=== PATIENT | female | born 1985 | race Caucasian/White ===

== ENCOUNTER 2016-10-03 22:34 | Inpatient (IN) | payer MEDICAID ==
[2016-10-03 23:56] LABS: APPEARANCE,URINE CLEAR; BILIRUBIN,URINE NEGATIVE (NEGATIVE); GLUCOSE, URINE NEGATIVE (NEGATIVE); KETONES,URINE NEGATIVE (NEGATIVE); LEUKOCYTE ESTERASE,URINE NEGATIVE (NEGATIVE); NITRITE,URINE NEGATIVE (NEGATIVE); PROTEIN,URINE NEGATIVE (NEGATIVE); URINE SPECIFIC GRAVITY 1.005; UROBILINOGEN,URINE NEGATIVE mg/dL (<2.0)
[2016-10-04] MEDS ORDERED: RINGERS SOLUTION,LACTATED 1,000 ML IV PRN ×3 (00:04→02:13)
[2016-10-04] MEDS ORDERED: CEFAZOLIN 2 GM/D5W RTU 2 GM/50 ML RTUPB IV ONE (00:27)
[2016-10-04] MEDS ORDERED: CITRIC ACID/SODIUM CITRATE ORAL SOLN 15 ML UDCUP ONE (00:27)
[2016-10-04] MEDS ORDERED: CEFAZOLIN SODIUM 2 GM in DEXTROSE 5%-WATER 50 ML IV PRN (00:28)
[2016-10-04] MEDS ORDERED: CITRIC ACID/SODIUM CITRATE ORAL SOLN 15 ML UDCUP PO PRN (00:28)
[2016-10-04 00:35] LABS: ABSOLUTE BASOPHILS # (AUTO) 0.1 10^3/uL (0.0-0.2); ABSOLUTE EOSINOPHILS # (AUTO) 0.2 10^3/uL (0.0-0.6); ABSOLUTE MONOCYTES (AUTO) 0.9 10^3/uL (0.1-1.4); ABSOLUTE NEUT (AUTO) 10.8 10^3/uL (1.7-8.2); BASOPHILS % (AUTO) 0.7 % (0-2); EOSINOPHILS % (AUTO) 1.2 % (0-6); HEMOGLOBIN 11.9 g/dL (12.0-15.5); HGB HCT DIFFERENCE 1.7; LYMPHOCYTES % (AUTO) 19.8 % (13-45); MEAN CORPUSCULAR HGB CONC 34.9 g/dL (32.0-36.0); MEAN CORPUSCULAR VOLUME 89 fl (80-97); RED BLOOD COUNT 3.83 10^6/uL (3.72-5.28); RED CELL DISTRIBUTION WIDTH 13.9 % (11.5-14.0); SEGMENTED NEUTROPHILS % (AUTO) 72.3 % (42-78)
[2016-10-04] MEDS ORDERED: FENTANYL CITRATE INJ/PF 100 MCG/2 ML AMPUL ONE ×2 (01:10→03:45)
[2016-10-04] MEDS ORDERED: EPHEDRINE SULFATE INJ 50 MG/1 ML AMPULE ONE (01:10)
[2016-10-04] MEDS ORDERED: OXYTOCIN/NORMAL SALINE 20 UNIT/1,000 ML RTUINJ ONE (01:10)
[2016-10-04] MEDS ORDERED: OXYTOCIN 10 UNIT/ML VIAL ONE (01:10)
[2016-10-04] MEDS ORDERED: MIDAZOLAM 2 MG/2 ML INJ ONE (01:11)
[2016-10-04 01:18] LABS: URINE BARBITURATES SCREEN NEGATIVE; URINE METHADONE SCREEN NEGATIVE; URINE OPIATES LOW NEGATIVE; URINE PHENCYCLIDINE SCREEN NEGATIVE
[2016-10-04] MEDS ORDERED: DIPH/PERTUSS(ACELL)/TETANUS VAC/PF 0.5 ML SYR (>=10YO) IM PRN (02:13)
[2016-10-04] MEDS ORDERED: SIMETHICONE 80 MG TAB.CHEW PO PRN (02:13)
[2016-10-04] MEDS ORDERED: OXYTOCIN/NORMAL SALINE 20 UNIT/1,000 ML RTUINJ IV PRN (02:13)
[2016-10-04] MEDS ORDERED: PROMETHAZINE HCL INJ 25 MG/1 ML VIAL IV PRN ×3 (02:13)
[2016-10-04] MEDS ORDERED: MORPHINE SULFATE 10 MG/ML INJ IV PRN (02:13)
[2016-10-04] MEDS ORDERED: MEPERIDINE HCL/PF INJ 25 MG/1 ML DISP.SYRIN IV PRN (02:13)
[2016-10-04] MEDS ORDERED: FENTANYL CITRATE INJ/PF 100 MCG/2 ML AMPUL IV PRN ×3 (02:13)
[2016-10-04] MEDS ORDERED: ONDANSETRON HCL INJ/PF 4 MG/2 ML SDV IV PRN (02:13)
[2016-10-04] MEDS ORDERED: ACETAMINOPHEN 325 MG TABLET PO PRN (02:13)
[2016-10-04] MEDS ORDERED: OXYCODONE-ACETAMINOPHEN 5-325 MG TABLET PO PRN (02:13)
[2016-10-04] MEDS ORDERED: DIPHENHYDRAMINE HCL 50 MG/ML VIAL IV PRN (02:13)
[2016-10-04] MEDS ORDERED: ACETAMINOPHEN 100 ML IV ONE (02:23)
[2016-10-04 02:38] LABS: ADD HIVPANEL? NO; HIV (1 AND 2) ANTIBODY NEGATIVE (NEGATIVE)
--- NOTE | 2016-10-04 03:23 | OPERATIVE REPORT E ---
Operative Report NAME: CAMERON SCHULTE : 1985 AGE: 31Y DATE OF SURGERY: 10/04/2016 ROOM: LR200 PREOPERATIVE DIAGNOSES: 1. A 40-week intrauterine , history of section x2 for repeat. 2. Poor care. 3. History of polysubstance abuse including intravenous heroin. 4. Reassuring heart tones, remote from delivery. POSTOPERATIVE DIAGNOSES: 1. A 40-week intrauterine , history of section x2 for repeat. 2. Poor care. 3. History of polysubstance abuse including intravenous heroin. 4. Reassuring heart tones, remote from delivery. SURGEON: Pierre Garg D.O. CONTACT PRINTER DRY FILM: None. OPERATION: Repeat low transverse section. ANESTHESIA: Spinal. COMPLICATIONS: None. ESTIMATED BLOOD LOSS: 600 mL. FINDINGS: 1. Viable male infant at 0133 a.m. on 10/04/2016; Apgars pending this dictation. 2. Meconium present, moderate in amount. 3. Normal-appearing bilateral fallopian tubes and ovaries. PROCEDURE: The patient was taken to the operating room and spinal anesthesia was administered. Once this was done, she was placed in the dorsal supine position with a leftward tilt upon the operating table. She was then prepped and draped in the normal sterile fashion. A scalpel was then used to make a Pfannenstiel skin incision. The skin incision was carried down through the subcutaneous tissues to the layer of the fascia. The fascia was incised in the midline. The fascial incision was then extended bilaterally using the Bovie cautery. The superior fascial edge was grasped with Marilyn clamps, elevated, and the rectus muscles dissected off sharply and bluntly. Attention was then turned to the inferior fascial edge, which was grasped with Marilyn clamps, elevated, and the rectus muscles dissected off sharply and bluntly. Rectus muscles were then in the midline, peritoneum identified and entered in bluntly with the surgeon's hands. Bladder blade was inserted. A scalpel was then used to make a low transverse hysterotomy incision. The was found to be in the cephalic position and delivered through this incision without difficulty and atraumatically. The nose and mouth were suctioned. The cord was clamped and cut. The was handed off to the waiting nurses. The cord was obtained. The placenta was then manually removed from the uterus. The uterus was then exteriorized and cleared of all clots and debris. The hysterotomy incision was then reapproximated using 1-0 Vicryl in a running locking fashion. Following closure of the second layer, excellent hemostasis was noted. Of note, approximately 1.5 cm below the hysterotomy incision, there appeared to be a thin window present approximately 3 to 4 cm in size. The uterus was then returned to the abdomen. Again, the hysterotomy incision was reinspected and found to have excellent hemostasis. The rectus muscles were then reapproximated using 1-0 Vicryl in interrupted sutures. The fascia was then closed using 1-0 Vicryl in a running nonlocking fashion. The subcutaneous space was made hemostatic using Bovie cautery. The skin was then closed with absorbable carrington, covered with an Op-Site and then with a pressure dressing. At this point in time, the procedure was terminated. All sponge, lap, and needle counts were correct x2. The patient tolerated the procedure well. The patient was taken to the recovery in stable condition. DICTATING PHYSICIAN: Pierre Garg DO [id number] PHY#: [id number] ID: [id number] JOB#: [id number] ACCT: [id number] cc:Pierre Garg D.O. >
--- NOTE | 2016-10-04 04:50 | Admission Physical ---
Datetime Report Generated by CPN: 10/04/2016 04:49 CURRENT ADMISSION Chief Complaint: Uterine Contractions Indication for Induction: Not Applicable Admit Impression- Other: Cat 2 strip Admit Plan: Admit to Unit; Initiate Section Protocol ALLERGIES Medication Allergies: No Medication Allergies: No Known Allergies (10/03/2016) Latex: No Latex Allergies Food Allergies: tree nuts Environmental Allergies: n/a OBSTETRICAL HISTORY EDC: 09/24/2016 00:00 : 4 Para: 3 Livin Cesareans: 2 VBACs: 0 Multiple Births: 1 Gestational Diabetes: No Rh Sensitization: No Incompetent Cervix: No FARRUKH: No Infertility: No ART Treatment: No Uterine Anomaly: No IUGR: No Hx Previous C/S: Yes Macrosomia: No Hx Loss/Stillborn: No PIH: No Hx : No Placenta Previa/Abruption: No Depression/PP Depression: Yes PTL/PROM: No Post Hemorrhage: No Current Procedures: Ultrasound; NST Obstetrical History Comments: 2003 SAB [id number] Twin boy c/s 37.5 g3- 05/2015 c/s boy 39 wks g4- current SEE RECORDS Alcohol: Yes Alcohol Frequency: Occasional Alcohol Comments: Glass of wine once/week Marijuana : No Cocaine: No Other Illicit Drugs: No Cigarettes: Current Everyday Smoker. [id number] Cigarette Frequency: 5 - 10 per day Advised to Stop: Yes Cigarette Comments: daily smoking MEDICAL HISTORY Diabetes: No Blood Transfusion: No Pulmonary Disease (Asthma, TB): No Breast Disease: No Hypertension: No Audio Video Mechanic Surgery: No Heart Disease: No Hosp/Surgery: Yes Autoimmune Disorder: No Anesthetic Complications: No Kidney Disease: No Abnormal Pap Smear: No Neuro/Epilepsy: No Psychiatric Disorders: No Other Medical Diseases: No Hepatitis/Liver Disease: No Significant Family History: No Varicosities/Phlebitis: No Trauma/Violence : No Thyroid Dysfunction: No INFECTIOUS HISTORY Gonorrhea: No Genital Herpes: No Chlamydia: No Tuberculosis: No Syphilis: No Hepatitis: No HIV/AIDS Exposure: No Rash or Viral Illness: No HPV: No PHYSICAL EXAM General: Normal HEENT: Normal Neurologic: Normal Thyroid: Deferred Heart: Normal Lungs: Normal Breast: Deferred Back: Normal Abdomen: Normal Genitourinary Exam: Normal Extremities: Normal DTRs: Normal Pelvic Type: Adequate Vital Signs: Reviewed; Within Normal Limits VAGINAL EXAM Dilatation: 1 Effacement: 80 Station: 0 MEMBRANES Membranes: Intact FETUS A EGA: 41.3 Monitoring: External US FHR- Baseline: 160 Variability: Moderate 6-25bpm Accelerations: 15X15 Decelerations: Variable FHR Category: Category II Admit Comment: Will admit and proceed with Repeat C/S PLANS FOR LABOR AND DELIVERY Feeding Preference: Breast Benefit of Breast Feed Discussed: Yes Circumcision: Yes INFORMED CONSENT Signature: with User ID: [email or web address]
[2016-10-04] MEDS: KETOROLAC TROMETHAMINE INJ/PF 30 MG/1 ML SDV IV SCH ×3 (05:00→21:44)
[2016-10-04] MEDS: HYDROMORPHONE HCL INJ/PF 2 MG/ML AMPULE IV PRN ×2 (06:22→09:57)
--- NOTE | 2016-10-04 07:01 | L&D Flow Sheet ---
LD Flowsheet Datetime Report Generated by CPN: 10/04/2016 07:00 Datetime: 10/04/2016 04:20 Vital Signs Stage of : Recovery (Ariella Errichiello, RN) Temperature (F): 97.5 (Ariella Errichiello, RN) Temperature (C): 36.4 (QS system process) Pain Pain Scale: 0 (Ariella Errichiello, RN) Datetime: 10/04/2016 04:18 NBP Sys/Luann/Mean (mmHg): 150 (QS system process) : 70 (QS system process) : 100 (QS system process) Pulse: 63 (QS system process) Datetime: 10/04/2016 04:16 Pulse: 53 (QS system process) SpO2 (%): 99 (QS system process) Datetime: 10/04/2016 04:11 Pulse: 67 (QS system process) SpO2 (%): 100 (QS system process) Datetime: 10/04/2016 04:07 NBP Sys/Luann/Mean (mmHg): 159 (QS system process) : 94 (QS system process) : 119 (QS system process) Pulse: 60 (QS system process) Datetime: 10/04/2016 04:06 Pulse: 60 (QS system process) SpO2 (%): 100 (QS system process) Datetime: 10/04/2016 04:01 Pulse: 63 (QS system process) SpO2 (%): 100 (QS system process) Datetime: 10/04/2016 04:00 Vital Signs Stage of : Recovery (Ariella Errichiello, RN) Pain Pain Scale: 0 (Ariella Errichiello, RN) Pain Presence: None/Denies (Ariella Errichiello, RN) Pain Type: N/A (Ariella Errichiello, RN) Datetime: 10/04/2016 03:56 Pulse: 66 (QS system process) SpO2 (%): 100 (QS system process) Datetime: 10/04/2016 03:52 NBP Sys/Luann/Mean (mmHg): 150 (QS system process) : 87 (QS system process) : 112 (QS system process) Pulse: 53 (QS system process) Datetime: 10/04/2016 03:51 Pulse: 56 (QS system process) SpO2 (%): 100 (QS system process) Datetime: 10/04/2016 03:46 Pulse: 53 (QS system process) SpO2 (%): 100 (QS system process) Datetime: 10/04/2016 03:41 Pulse: 63 (QS system process) SpO2 (%): 100 (QS system process) Datetime: 10/04/2016 03:37 NBP Sys/Luann/Mean (mmHg): 155 (QS system process) : 89 (QS system process) : 114 (QS system process) Pulse: 48 (QS system process) Datetime: 10/04/2016 03:36 Pulse: 52 (QS system process) SpO2 (%): 100 (QS system process) Datetime: 10/04/2016 03:31 Pulse: 56 (QS system process) SpO2 (%): 100 (QS system process) Datetime: 10/04/2016 03:30 Vital Signs Stage of : Recovery (Ariella Errichiello, RN) Pain Pain Scale: 0 (Ariella Errichiello, RN) Pain Presence: None/Denies (Ariella Errichiello, RN) Pain Type: N/A (Ariella Errichiello, RN) Datetime: 10/04/2016 03:26 Pulse: 50 (QS system process) SpO2 (%): 100 (QS system process) Datetime: 10/04/2016 03:22 NBP Sys/Luann/Mean (mmHg): 148 (QS system process) : 85 (QS system process) : 110 (QS system process) Pulse: 51 (QS system process) Datetime: 10/04/2016 03:21 Pulse: 55 (QS system process) SpO2 (%): 100 (QS system process) Datetime: 10/04/2016 03:16 Pulse: 58 (QS system process) SpO2 (%): 100 (QS system process) Datetime: 10/04/2016 03:11 Pulse: 50 (QS system process) SpO2 (%): 100 (QS system process) Datetime: 10/04/2016 03:07 NBP Sys/Luann/Mean (mmHg): 146 (QS system process) : 83 (QS system process) : 108 (QS system process) Pulse: 55 (QS system process) Datetime: 10/04/2016 03:06 Pulse: 52 (QS system process) SpO2 (%): 100 (QS system process) Datetime: 10/04/2016 03:01 Pulse: 69 (QS system process) SpO2 (%): 100 (QS system process) Datetime: 10/04/2016 03:00 Vital Signs Stage of : Recovery (Ariella Errichiello, RN) Pain Pain Scale: 0 (Ariella Errichiello, RN) Pain Presence: None/Denies (Ariella Errichiello, RN) Pain Type: N/A (Ariella Errichiello, RN) Datetime: 10/04/2016 02:56 Pulse: 55 (QS system process) SpO2 (%): 100 (QS system process) Datetime: 10/04/2016 02:53 NBP Sys/Luann/Mean (mmHg): 135 (QS system process) : 78 (QS system process) : 102 (QS system process) Pulse: 56 (QS system process) Datetime: 10/04/2016 02:51 Pulse: 59 (QS system process) SpO2 (%): 100 (QS system process) Datetime: 10/04/2016 02:46 Pulse: 50 (QS system process) SpO2 (%): 100 (QS system process) Datetime: 10/04/2016 02:45 Vital Signs Stage of : Recovery (Ariella Errichiello, RN) Pain Pain Scale: 0 (Ariella Errichiello, RN) Pain Presence: None/Denies (Ariella Errichiello, RN) Pain Type: N/A (Ariella Errichiello, RN) Datetime: 10/04/2016 02:41 Pulse: 49 (QS system process) SpO2 (%): 100 (QS system process) Datetime: 10/04/2016 02:37 NBP Sys/Luann/Mean (mmHg): 132 (QS system process) : 68 (QS system process) : 95 (QS system process) Pulse: 54 (QS system process) Datetime: 10/04/2016 02:36 Pulse: 57 (QS system process) SpO2 (%): 99 (QS system process) Datetime: 10/04/2016 02:31 Pulse: 57 (QS system process) SpO2 (%): 100 (QS system process) Datetime: 10/04/2016 02:30 Vital Signs Stage of : Recovery (Ariella Errichiello, RN) Pain Pain Scale: 0 (Ariella Errichiello, RN) Pain Presence: None/Denies (Ariella Errichiello, RN) Pain Type: N/A (Ariella Errichiello, RN) Datetime: 10/04/2016 02:26 Pulse: 54 (QS system process) SpO2 (%): 100 (QS system process) Datetime: 10/04/2016 02:25 NBP Sys/Luann/Mean (mmHg): 127 (QS system process) : 66 (QS system process) : 91 (QS system process) Pulse: 53 (QS system process) Datetime: 10/04/2016 02:20 Vital Signs Stage of : Recovery (Ariella Errichiello, RN) Respirations: 16 (Ariella Errichiello, RN) Temperature (F): 97.4 (Ariella Errichiello, RN) Temperature (C): 36.3 (QS system process) Pain Pain Scale: 0 (Ariella Errichiello, RN) Datetime: 10/04/2016 01:15 Additional Nursing Comments: Pt ambulating to OR for repeat . (Meenu Lattibeaudeir, RN) Datetime: 10/04/2016 01:14 Comments: monitors removed as pt to go to OR for repeat c/s (Ariella Errichiello, RN) Datetime: 10/04/2016 01:09 NBP Sys/Luann/Mean (mmHg): 155 (QS system process) : 74 (QS system process) : 107 (QS system process) Pulse: 60 (QS system process) LaborFlag: Antepartum (QS system process) Datetime: 10/04/2016 00:51 Communication Comments: Called Estefani, PRINTED FORMS PROOFREADER and informed that called. (Meenu Lattibeaudeir, RN) Datetime: 10/04/2016 00:47 Communication Comments: Called Suri, component assembler supervisor, and [facility] [address] to informed them of being called. (Meenu Lattibeaudeir, RN) Datetime: 10/04/2016 00:45 Vital Signs Stage of : Antepartum (Ariella Errichiello, RN) Uterine Activity Monitor Mode: External (Ariella Paige RN) Monitor Interventions for UA: [place] Adjusted (Ariella Paige RN) Frequency (min): 3-4 (Ariella Paige RN) Quality: Mild/Moderate (Ariella Paige RN) Duration (sec): 50-130 (Ariella Paige RN) Resting Tone (Palpate): Relaxed (Ariella Paige RN) Assessment A Monitor Mode: External US (Ariella Paige RN) Monitor Interventions for FHR: Ultrasound Adjusted (Ariella Paige RN) FHR Baseline Rate : 165 (Ariella Paige RN) FHR Baseline Changes: No Baseline Change (Ariella Paige RN) Variability: Moderate 6-25 bpm (Ariella Paige, RN) Accelerations: 15X15 (Ariella Paige RN) Decelerations: Variable (Ariella Paige RN) Patient Position/Activity: Right Tilt; Semi-Fowlers (Ariella Paige, RN) Communication Communication: RN Reviewed Strip (Ariella Errichiello, RN) Communication Comments: RN went into [facility] and informed them has been called. (Meenu Lattibeaudeir, RN) Datetime: 10/04/2016 00:40 Medications Antibiotics: Ancef IV (Gm) @ 2 (Ariella Errichiello, RN) Antiemetics/Antacids: Bicitra 15 ml PO (Ariella Errichiello, RN) Datetime: 10/04/2016 00:39 NBP Sys/Luann/Mean (mmHg): 159 (QS system process) : 90 (QS system process) : 118 (QS system process) Pulse: 69 (QS system process) LaborFlag: Antepartum (QS system process) Datetime: 10/04/2016 00:36 Patient Care IV/Blood Work: IV Started; IV Bolus Started; IV Infusing per Order; New IV Bag Hung (Ariella Errichiello, RN) Datetime: 10/04/2016 00:35 I/O Interventions: House Cath Inserted (Ariella Errichiello, RN) Datetime: 10/04/2016 00:30 Procedures: Consents Signed (Ariella Errichiello, RN) Datetime: 10/04/2016 00:25 NBP Sys/Luann/Mean (mmHg): 157 (QS system process) : 86 (QS system process) : 114 (QS system process) Pulse: 73 (QS system process) LaborFlag: Antepartum (QS system process) Datetime: 10/04/2016 00:15 Vital Signs Stage of : Antepartum (Ariella Errichiello, RN) Uterine Activity Monitor Mode: External (Ariella Paige RN) Monitor Interventions for UA: [place] Adjusted (Ariella Paige RN) Frequency (min): 2-5 (Ariella Paige RN) Quality: Mild/Moderate (Ariella Paige RN) Duration (sec): 50-120 (Ariella Paige RN) Resting Tone (Palpate): Relaxed (Ariella Paige, RN) Assessment A Monitor Mode: External US (Ariella Paige RN) Monitor Interventions for FHR: Ultrasound Adjusted (Ariella Paige RN) FHR Baseline Rate : 165 (Ariella Paige RN) FHR Baseline Changes: No Baseline Change (Ariella Paige RN) Variability: Moderate 6-25 bpm (Ariella Paige RN) Accelerations: 15X15 (Ariella Paige RN) Decelerations: Late (Ariella Paige RN) Pain Presence: None/Denies (Ariella Paige RN) Patient Position/Activity: Right Tilt; Semi-Fowlers (Ariella Paige RN) Communication Communication: RN at Bedside; RN Reviewed Strip (Ariella Paige RN) Communication Comments: Dr Garg on unit, some records received from [facility]. After review of records and oberservation of strip, decision made to admit patient for repeat c/s. (Ariella Paige RN) LaborFlag: Antepartum (QS system process) Datetime: 10/04/2016 00:10 NBP Sys/Luann/Mean (mmHg): 140 (QS system process) : 89 (QS system process) : 110 (QS system process) Pulse: 68 (QS system process) LaborFlag: Antepartum (QS system process) Datetime: 10/03/2016 23:57 NBP Sys/Luann/Mean (mmHg): 152 (QS system process) : 69 (QS system process) : 99 (QS system process) Pulse: 67 (QS system process) I/O Interventions: Up to BR (Ariella Paige RN) LaborFlag: Antepartum (QS system process) Datetime: 10/03/2016 23:54 NBP Sys/Luann/Mean (mmHg): 164 (QS system process) : 102 (QS system process) : 117 (QS system process) Pulse: 85 (QS system process) LaborFlag: Antepartum (QS system process) Datetime: 10/03/2016 23:45 Vital Signs Stage of : Antepartum (Ariella Paige RN) Uterine Activity Monitor Mode: External (Ariella Paige RN) Monitor Interventions for UA: [place] Adjusted (Ariella Paige RN) Frequency (min): 2-6 (Ariella Paige RN) Quality: Mild (Ariella Paige RN) Duration (sec): 50-120 (Ariella Paige RN) Resting Tone (Palpate): Relaxed (Ariella Paige RN) Assessment A Monitor Mode: External US (Ariella Paige RN) Monitor Interventions for FHR: Ultrasound Adjusted (Ariella Paige RN) FHR Baseline Rate : 165 (Ariella Paige RN) FHR Baseline Changes: No Baseline Change (Ariella Paige RN) Variability: Moderate 6-25 bpm (Ariella Paige RN) Accelerations: 15X15 (Ariella Paige RN) Decelerations: Late; Variable (Ariella Paige RN) Patient Position/Activity: Left Tilt; Semi-Fowlers (Ariella Paige RN) Communication Communication: RN at Bedside; RN Reviewed Strip (Ariella Paige RN) Datetime: 10/03/2016 23:44 Communication Comments: [place] on unit, awaiting results of UA/UDS and records from [facility]. Will continue to monitor pt closely. (Ariella Paige RN) Datetime: 10/03/2016 23:39 NBP Sys/Luann/Mean (mmHg): 143 (QS system process) : 92 (QS system process) : 113 (QS system process) Pulse: 70 (QS system process) Communication Comments: Dr Garg called, made aware of pt condition, EFM strip and pt complaints. MD states he will come to unit to discuss POC (Ariella Paige RN) LaborFlag: Antepartum (QS system process) Datetime: 10/03/2016 23:34 Actions for Decelerations: Side to Side (Ariella Errichiello, RN) Datetime: 10/03/2016 23:23 NBP Sys/Luann/Mean (mmHg): 155 (QS system process) : 95 (QS system process) : 118 (QS system process) Pulse: 63 (QS system process) LaborFlag: Antepartum (QS system process) Datetime: 10/03/2016 23:16 Vaginal Exam Dilatation (cm): 1.0 (Meenu Martineztibbelkis RN) Effacement (%): 80 (Meenu Steiner, DHARMESH) Station: 0 (Meenu Steiner RN) Exam by: Tati DHARMESH Steiner (Meenu Steiner, DHARMESH) Datetime: 10/03/2016 23:15 Vital Signs Stage of : Antepartum (Ariella Paige RN) Uterine Activity Monitor Mode: External (Ariella Paige RN) Monitor Interventions for UA: [place] Adjusted (Ariella Paige RN) Frequency (min): x2 (Ariella Paige RN) Quality: Mild/Moderate (Ariella Paige RN) Duration (sec): 60-120 (Ariella Paige RN) Resting Tone (Palpate): Relaxed (Ariella Paige RN) Assessment A Monitor Mode: External US (Ariella Paige RN) FHR Baseline Rate : 165 (Ariella Paige RN) FHR Baseline Changes: No Baseline Change (Ariella Paige RN) Variability: Moderate 6-25 bpm (Ariella Paige RN) Accelerations: 15X15 (Ariella Paige RN) Decelerations: Variable (Ariella Paige RN) Pain Pain Scale: 4 (Ariella Paige RN) Pain Presence: Intermittent (Ariella Paige RN) Pain Type: Contraction (Ariella Paige RN) Pain Goal: 1 (Ariella Paige RN) Pain Relief Measures: Comfort Measures (Ariella Paige RN) Pain Coping: Talking Through Contractions (Ariella Paige RN) Pain Assessment Comments: with UCs (Ariella Paige RN) Patient Position/Activity: Left Tilt; Semi-Fowlers (Ariella Paige RN) Comfort Measures: Breathing/Relaxation; Coaching; Family Support (Ariella Paige RN) Communication Communication: RN at Bedside; RN Reviewed Strip (Ariella Paige RN) LaborFlag: Antepartum (QS system process) Datetime: 10/03/2016 23:09 NBP Sys/Luann/Mean (mmHg): 142 (QS system process) : 92 (QS system process) : 112 (QS system process) Pulse: 77 (QS system process) Datetime: 10/03/2016 23:02 Pain Pain Scale: 3 (Ariella Paige RN) Pain Presence: Intermittent (Ariella Paige RN) Pain Type: Contraction (Ariella Paige RN) Pain Location: Abdomen (Ariella Paige RN) Pain Goal: 1 (Ariella Paige RN) Pain Relief Measures: Comfort Measures (Ariella Paige RN) Pain Coping: Breathing Through Contractions (Ariella Paige RN) Pain Assessment Comments: with UCs (Ariella Paige RN) Membrane Status: Intact (Ariella Paige RN) Vaginal Bleeding: None (Ariella Paige RN) Maternal Assessment Level of Consciousness: Fully Conscious (Ariella Paige RN) DTR's/Clonus: DTRs 2+; No Clonus (Ariella Paige RN) Headache: Denies (Ariella Paige RN) Breath Sounds, Left: Clear and Equal (Ariella Paige RN) Breath Sounds, Right: Clear and Equal (Ariella Paige RN) Nausea/Vomiting: Denies (Ariella Paige RN) Datetime: 10/03/2016 22:56 Comments: US applied and explained to pt (Ariella Paige RN) Datetime: 10/03/2016 22:36 Membranes Ruptured Date/Time: 10/04/2016 01:33 (Meenu Steiner RN) Membranes Rupture Method: Artificial (Meenu Steiner RN) Amniotic Fluid Color: Heavy Meconium (Meenu Steiner RN) Amniotic Fluid Amount: Small (Meenu Steiner RN) Amniotic Fluid Odor: Normal (Meenu Steiner RN)
[2016-10-04] MEDS: PRENATAL VITAMIN W-O CA NO5/FE FUMARATE/FA CAPSULE PO SCH (09:18)
[2016-10-04] MEDS: DOCUSATE SODIUM 100 MG CAPSULE PO SCH ×2 (09:18→17:38)
[2016-10-04] MEDS: OXYCODONE-ACETAMINOPHEN 5-325 MG TABLET PO PRN ×3 (11:46→19:51)
[2016-10-04] MEDS ORDERED: DEXAMETHASONE SOD PHOSPHATE INJ 4 MG/1 ML VIAL ONE (16:14)
[2016-10-04] MEDS ORDERED: PHENYLEPHRINE HCL INJ/PF 10 MG/1 ML SDV ONE (16:14)
[2016-10-04] MEDS ORDERED: ONDANSETRON HCL INJ/PF 4 MG/2 ML SDV ONE (16:14)
[2016-10-04] MEDS ORDERED: KETOROLAC TROMETHAMINE 60 MG/2 ML SDV ONE (16:14)
[2016-10-04] MEDS ORDERED: METOCLOPRAMIDE HCL INJ/PF 10 MG/2 ML SDV ONE (16:14)
--- NOTE | 2016-10-04 18:01 | L&D General Admission ---
General Admit Datetime Report Generated by CPN: 10/04/2016 18:00 INFORMATION Patient Age: 31 (10/03/2016 22:35:QS system process) EDC: 09/24/2016 00:00 (10/03/2016 22:36:Inga Preciado RN) : 4 (10/03/2016 22:36:Meenu Steiner RN) Para: 3 (10/03/2016 22:36:Meenu Steiner RN) Livin (10/03/2016 22:36:Meenu Steiner RN) Cesareans: 2 (10/03/2016 22:36:Meenu Steiner RN) VBACs: 0 (10/03/2016 22:36:Meenu Steiner RN) Multiple Births: 1 (10/03/2016 22:36:Meenu Steiner RN) Baby, Number in Womb: 1 (10/03/2016 22:36:Meenu Steiner RN) CARE Primary Desizing Pad Operator: Other-Annotate (10/03/2016 22:36:Ariella Paige RN) Desizing Pad Operator Other: [facility] (10/03/2016 22:36:Ariella Paige RN) Adequate Care: No (10/03/2016 22:36:Meenu Steiner RN) Height (in): 64 (10/04/2016 08:29:QS system process) ALLERGIES Medication Allergy: No (10/03/2016 22:36:Ariella Paige RN) Medication Allergies: No Known Allergies (10/03/2016) (10/03/2016 23:37:QS system process) Latex Allergy: No Latex Allergies (10/03/2016 22:36:Ariella Paige RN) Food Allergies: tree nuts (10/03/2016 22:36:Ariella Paige RN) Environmental Allergies: n/a (10/03/2016 22:36:Ariella Paige RN) COMMUNICATION Primary Language: Spanish (10/03/2016 22:36:Ariella Paige RN) Medical Tx Preferred Language: Spanish (10/03/2016 22:36:Ariella Paige RN) Communication Barrier(s): None (10/03/2016:36:Ariella Paige RN) DEMOGRAPHICS Address: [address] [place] [id number] (10/03/2016 22:35:QS system process) Zipcode: [address] (10/03/2016 22:35:QS system process) Home (10/03/2016 22:35:QS system process) N: [phone] (10/03/2016 22:35:QS system process) Next of Kin Name: JAXON BEAULIEU (10/03/2016 22:35:QS system process) Next of Kin (10/03/2016 22:35:QS system process) Next of Kin Relationship: OR (10/03/2016 22:35:QS system process) Date of : 1985 (10/03/2016 22:35:QS system process) Marital Status: Single (10/03/2016 22:35:QS system process) Sex: Female (10/03/2016 22:35:QS system process) Race: (10/03/2016 22:35:QS system process) Ethnicity: Non- or (10/03/2016 22:35:QS system process) Bahai: None (10/03/2016 22:35:QS system process) DRUG AND ALCOHOL USE Alcohol: Yes (10/03/2016 22:36:Ariella Paige RN) Average Alcohol Consumption: Occasional (10/03/2016 22:36:Ariella Paige RN) Alcohol Comments: Glass of wine once/week (10/03/2016 22:36:Ariella Paige RN) Cigarettes: Current Everyday Smoker. [id number] (10/03/2016 22:36:Ariella Paige RN) Average Cigarettes Smoked: 5 - 10 per day (10/03/2016 22:36:Ariella Paige RN) Advised to Stop Smoking: Yes (10/03/2016 22:36:Ariella Paige RN) Cigarette Comments: daily smoking (10/03/2016 22:36:Ariella Paige RN) Marijuana: No (10/03/2016 22:36:Ariella Paige RN) Cocaine: No (10/03/2016 22:36:Ariella Paige RN) Other Illicit Drugs: No (10/03/2016 22:36:Ariella Paige RN) VACCINE HISTORY Influenza Vaccine: Yes (10/03/2016 22:36:Ariella Paige RN) Influenza Date: june 2016 (10/03/2016 22:36:Ariella Paige RN) Pneumococcal Vaccine: No (10/03/2016 22:36:Ariella Paige RN) Tetanus Vaccine: No (10/03/2016 22:36:Ariella Paige RN) Tdap Vaccine: Uncertain (10/03/2016 22:36:Ariella Paige RN) Hepatitis B Vaccine: Uncertain (10/03/2016 22:36:Ariella Paige RN) Business Administration Instructor: Other (10/03/2016 22:36:Ariella Paige RN) Feeding Preference: Breast (10/03/2016 22:36:Ariella Paige RN) Benefit of Breast Feed Discussed: Yes (10/03/2016 22:36:Ariella Paige RN) Circumcision: Yes (10/03/2016 22:36:Ariella Paige RN) Classes Attended: No (10/03/2016 22:36:Ariella Piage RN) Support Person: Maximiliano Toledo (10/03/2016 22:36:Ariella Paige RN) Support Person Relationship: Significant Other (10/03/2016 22:36:Ariella Paige RN) Cultural/Spritual Practice: No (10/03/2016 22:36:Ariella Paige RN) Spir/Cult Dietary Needs: No (10/03/2016 22:36:Ariella Paige RN) LIVING SITUATION/DISCHARGE PLAN Living Arrangements: House (10/03/2016 22:36:Ariella Paige RN) Adequate Access to:: Electric; Heat; Refrigeration; Plumbing/Running water; Phone; Transportation (10/03/2016 22:36:Ariella Paige RN) WIC Program: No (10/03/2016 22:36:Ariella Paige RN) Discharge Underwater Trapper Person: yes (10/03/2016 22:36:Ariella Paige RN) Person to Help after Discharge: yes (10/03/2016 22:36:Ariella Paige RN) Currently Using Commun Resources: Yes (10/03/2016 22:36:Ariella Paige RN) Specify Current Resource Used: Medicaid (10/03/2016 22:36:Ariella Paige RN) Car Seat for Discharge: Yes (10/03/2016 22:36:Ariella Paige RN) Adoption Requested: No (10/03/2016 22:36:Ariella Paige RN) LABS Blood Type: O Positive (10/03/2016 22:36:Meenu Steiner RN) Antibody Screen: Negative (10/03/2016 22:36:Meenu Steiner RN) Rho(G) this : Not Applicable (10/03/2016 22:36:Meenu Steiner RN) Hemoglobin: 11.9 L (10/04/2016 00:23:QS system process) Hematocrit: 34.0 L (10/04/2016 00:23:QS system process) MCV: 89 (10/04/2016 00:23:QS system process) Group Beta Strep: Unknown (10/03/2016 22:36:Meenu Steiner RN) RPR/VDRL: Nonreactive (10/03/2016 22:36:Meenu Steiner RN) HIV Results: NEGATIVE (10/04/2016 00:55:QS system process) Hepatitis B: Negative (10/03/2016 22:36:Meenu Steiner RN) Rubella: Immune (10/03/2016 22:36:Meenu Steiner RN) Varicella: Susceptible (10/03/2016 22:36:Meenu Steiner RN) OB/PREVIOUS HISTORY Previous Procedures: Ultrasound; NST (10/03/2016 22:36:Ariella Paige RN) Current Procedures: Ultrasound; NST (10/03/2016 22:36:Ariella Paige RN) History of Previous : Yes (10/03/2016 22:36:Ariella Paige RN) History of Gestational Diabetes: No (10/03/2016 22:36:Ariella Paige RN) History of PIH: No (10/03/2016 22:36:Ariella Paige RN) History of Incompetent Cervix: No (10/03/2016 22:36:Ariella Paige RN) History of Placenta Previa/Abrup: No (10/03/2016 22:36:Ariella Paige RN) History of Macrosomia: No (10/03/2016 22:36:Ariella Paige RN) History of IUGR: No (10/03/2016 22:36:Ariella Paige RN) History of Hemorrhage: No (10/03/2016 22:36:Ariella Paige RN) History of Loss/Stillborn: No (10/03/2016 22:36:Ariella Paige RN) History of : No (10/03/2016 22:36:Ariella Paige RN) History of D (Rh) Sensitization: No (10/03/2016 22:36:Ariella Paige RN) History Recurrent Loss/Stillborn: No (10/03/2016 22:36:Ariella Paige RN) History Depression/PP Depression: Yes (10/03/2016 22:36:Ariella Paige RN) History of Uterine Anomaly/FARRUKH: No (10/03/2016 22:36:Ariella Paige RN) History of Infertility: No (10/03/2016 22:36:Ariella Paige RN) History of ART Treatment: No (10/03/2016 22:36:Ariella Paige RN) History of FARRUKH: No (10/03/2016 22:36:Ariella Paige RN) Comments Obstetrical History: g1- 2003 SAB g2- 2010 Twin boy c/s 37.5 g3- 05/2015 c/s boy 39 wks g4- current (10/03/2016 22:36:Ariella Paige RN) MEDICAL HISTORY Med Hx Diabetes: No (10/03/2016 22:36:Ariella Paige RN) Med Hx Hypertension: No (10/03/2016 22:36:Ariella Paige RN) Med Hx Heart Disease: No (10/03/2016 22:36:Ariella Paige RN) Med Hx Autoimmune Disorder: No (10/03/2016 22:36:Ariella Paige RN) Med Hx Kidney Disease/UTI: No (10/03/2016 22:36:Ariella Paige RN) Med Hx Neurologic/Epilepsy: No (10/03/2016 22:36:Ariella Paige RN) Med Hx Psychiatric Disorders: No (10/03/2016 22:36:Ariella Paige RN) Med Hx Hepatitis/Liver Disease: No (10/03/2016 22:36:Ariella Paige RN) Med Hx Varicosities/Phlebitis: No (10/03/2016 22:36:Ariella Paige RN) Med Hx Thyroid Dysfunction: No (10/03/2016 22:36:Ariella Paige RN) Med Hx Trauma/Violence: No (10/03/2016 22:36:Ariella Paige RN) Med Hx Blood Transfusion: No (10/03/2016 22:36:Ariella Paige RN) Med Hx Pulmonary (Asthma,TB): No (10/03/2016 22:36:Ariella Paige RN) Med Hx Breast: No (10/03/2016 22:36:Ariella Paige RN) Med Hx SQUEAK R[employer] REPAIRER Surgery: No (10/03/2016 22:36:Ariella Paige RN) Med Hx Hospitalization/Surgery: Yes (10/03/2016 22:36:Ariella Paige RN) Med Hx Anesthetic Complications: No (10/03/2016 22:36:Ariella Paige RN) Med Hx Abnormal Pap Smear: No (10/03/2016 22:36:Ariella Paige RN) Other Medical Diseases: No (10/03/2016 22:36:Ariella Paige RN) Med Hx Significant Family Hx: No (10/03/2016 22:36:Ariella Paige RN) INFECTIOUS HISTORY Inf Hx Gonorrhea: No (10/03/2016 22:36:Ariella Paige RN) Inf Hx Chlamydia: No (10/03/2016 22:36:Ariella Paige RN) Inf Hx Syphilis: No (10/03/2016 22:36:Ariella Paige RN) Inf Hx HIV/AIDS: No (10/03/2016 22:36:Ariella Paige RN) Inf Hx Human Papilloma Virus: No (10/03/2016 22:36:Ariella Paige RN) Inf Hx Pt/Partner Genital Herpes: No (10/03/2016 22:36:Ariella Paige RN) Inf Hx Tuberculosis/Exposure: No (10/03/2016 22:36:Ariella Paige RN) Inf Hx Hepatitis B,C: No (10/03/2016 22:36:Ariella Paige RN) Inf Hx Rash or Viral Illness: No (10/03/2016 22:36:Ariella Paige RN) GENETIC HISTORY Gen Hx Age >=35 at MAURA: No (10/03/2016 22:36:Ariella Paige RN) Gen Hx Thalassemia: No (10/03/2016 22:36:Ariella Paige RN) Gen Hx Congenital Heart Defect: No (10/03/2016 22:36:Ariella Paige RN) Gen Hx Neural Tube Defect: No (10/03/2016 22:36:Ariella Paige RN) Gen Hx Down's Syndrome: No (10/03/2016 22:36:Ariella Paige RN) Gen Hx Dre-Sachs: No (10/03/2016 22:36:Ariella Paige RN) Gen Hx Nava: No (10/03/2016 22:36:Ariella Paige RN) Gen Hx Familial Dysautonomia: No (10/03/2016 22:36:Ariella Paige RN) Gen Hx Sickle Cell Disease/Trait: No (10/03/2016 22:36:Ariella Paige RN) Gen Hx Hemophilia/Blood Disorder: No (10/03/2016 22:36:Ariella Paige RN) Gen Hx Muscular Dystrophy: No (10/03/2016 22:36:Ariella Paige RN) Gen Hx Cystic Fibrosis: No (10/03/2016 22:36:Ariella Paige RN) Gen Hx Huntingtons Chorea: No (10/03/2016 22:36:Ariella Paige RN) Gen Hx Mental Retardation/Autism: No (10/03/2016 22:36:Ariella Paige RN) Gen Hx Tested for Fragile X: No (10/03/2016 22:36:Ariella Paige RN) Gen Hx Other Inher/Chromosomal: No (10/03/2016 22:36:Ariella Paige RN) Gen Hx Maternal Metabolic DO: No (10/03/2016 22:36:Ariella Paige RN) Gen Hx Pt Father or FOB Defect: No (10/03/2016 22:36:Ariella Paige RN) Gen Hx Other Genetic History: No (10/03/2016 22:36:Ariella Paige RN) Gen Hx Drugs/Meds since LMP: No (10/03/2016 22:36:Ariella Paige RN)
--- NOTE | 2016-10-04 18:01 | L&D Current Admission ---
Current Admit Datetime Report Generated by CPN: 10/04/2016 18:00 ADMISSION INFORMATION Chief Complaint: Contractions (10/03/2016 23:02:HAYDE Tovar
[2016-10-05] MEDS: OXYCODONE-ACETAMINOPHEN 5-325 MG TABLET PO PRN ×3 (00:02→08:01)
[2016-10-05] MEDS ORDERED: IBUPROFEN 800 MG TABLET PO SCH (06:00)
--- NOTE | 2016-10-05 06:01 | L&D Current Admission ---
Current Admit Datetime Report Generated by CPN: 10/05/2016 06:00 ADMISSION INFORMATION Chief Complaint: Contractions (10/03/2016 23:02:HAYDE Tovar
--- NOTE | 2016-10-05 06:01 | L&D General Admission ---
General Admit Datetime Report Generated by CPN: 10/05/2016 06:00 INFORMATION Patient Age: 31 (10/03/2016 22:35:QS system process) EDC: 09/24/2016 00:00 (10/03/2016 22:36:Inga Preciado RN) : 4 (10/03/2016 22:36:Meenu Steiner RN) Para: 3 (10/03/2016 22:36:Meenu Steiner RN) Livin (10/03/2016 22:36:Meenu Steiner RN) Cesareans: 2 (10/03/2016 22:36:Meenu Steiner RN) VBACs: 0 (10/03/2016 22:36:Meenu Steiner RN) Multiple Births: 1 (10/03/2016 22:36:Meenu Steiner RN) Baby, Number in Womb: 1 (10/03/2016 22:36:Meenu Steiner RN) CARE Primary Project Coach: Other-Annotate (10/03/2016 22:36:Ariella Paige RN) Project Coach Other: [facility] (10/03/2016 22:36:Ariella Paige RN) Adequate Care: No (10/03/2016 22:36:Meenu Steiner RN) Height (in): 64 (10/04/2016 08:29:QS system process) ALLERGIES Medication Allergy: No (10/03/2016 22:36:Ariella Paige RN) Medication Allergies: No Known Allergies (10/03/2016) (10/03/2016 23:37:QS system process) Latex Allergy: No Latex Allergies (10/03/2016 22:36:Ariella Paige RN) Food Allergies: tree nuts (10/03/2016 22:36:Ariella Paige RN) Environmental Allergies: n/a (10/03/2016 22:36:Ariella Paige RN) COMMUNICATION Primary Language: Jamaican (10/03/2016 22:36:Ariella Paige RN) Medical Tx Preferred Language: Jamaican (10/03/2016 22:36:Ariella Paige RN) Communication Barrier(s): None (10/03/2016:36:Ariella Paige RN) DEMOGRAPHICS Address: [address] [place] [phone] (10/03/2016 22:35:QS system process) Zipcode: [address] (10/03/2016 22:35:QS system process) Home (10/03/2016 22:35:QS system process) N: [phone] (10/03/2016 22:35:QS system process) Next of Kin Name: JAXON BEAULIEU (10/03/2016 22:35:QS system process) Next of Kin (10/03/2016 22:35:QS system process) Next of Kin Relationship: OR (10/03/2016 22:35:QS system process) Date of : 1985 (10/03/2016 22:35:QS system process) Marital Status: Single (10/03/2016 22:35:QS system process) Sex: Female (10/03/2016 22:35:QS system process) Race: (10/03/2016 22:35:QS system process) Ethnicity: Non- or (10/03/2016 22:35:QS system process) Denominational: None (10/03/2016 22:35:QS system process) DRUG AND ALCOHOL USE Alcohol: Yes (10/03/2016 22:36:Ariella Paige RN) Average Alcohol Consumption: Occasional (10/03/2016 22:36:Ariella Paige RN) Alcohol Comments: Glass of wine once/week (10/03/2016 22:36:Ariella Paige RN) Cigarettes: Current Everyday Smoker. [id number] (10/03/2016 22:36:Ariella Paige RN) Average Cigarettes Smoked: 5 - 10 per day (10/03/2016 22:36:Ariella Paige RN) Advised to Stop Smoking: Yes (10/03/2016 22:36:Ariella Paige RN) Cigarette Comments: daily smoking (10/03/2016 22:36:Ariella Paige RN) Marijuana: No (10/03/2016 22:36:Ariella Paige RN) Cocaine: No (10/03/2016 22:36:Ariella Paige RN) Other Illicit Drugs: No (10/03/2016 22:36:Ariella Paige RN) VACCINE HISTORY Influenza Vaccine: Yes (10/03/2016 22:36:Ariella Paige RN) Influenza Date: june 2016 (10/03/2016 22:36:Ariella Paige RN) Pneumococcal Vaccine: No (10/03/2016 22:36:Ariella Paige RN) Tetanus Vaccine: No (10/03/2016 22:36:Ariella Paige RN) Tdap Vaccine: Uncertain (10/03/2016 22:36:Ariella Paige RN) Hepatitis B Vaccine: Uncertain (10/03/2016 22:36:Ariella Paige RN) Supervisor Tumblers: Other (10/03/2016 22:36:Ariella Paige RN) Feeding Preference: Breast (10/03/2016 22:36:Ariella Paige RN) Benefit of Breast Feed Discussed: Yes (10/03/2016 22:36:Ariella Paige RN) Circumcision: Yes (10/03/2016 22:36:Ariella Paige RN) Classes Attended: No (10/03/2016 22:36:Ariella Paige RN) Support Person: Maximiliano Toledo (10/03/2016 22:36:Ariella Paige RN) Support Person Relationship: Significant Other (10/03/2016 22:36:Ariella Paige RN) Cultural/Spritual Practice: No (10/03/2016 22:36:Ariella Paige RN) Spir/Cult Dietary Needs: No (10/03/2016 22:36:Ariella Paige RN) LIVING SITUATION/DISCHARGE PLAN Living Arrangements: House (10/03/2016 22:36:Ariella Paige RN) Adequate Access to:: Electric; Heat; Refrigeration; Plumbing/Running water; Phone; Transportation (10/03/2016 22:36:Ariella Paige RN) WIC Program: No (10/03/2016 22:36:Ariella Paige RN) Discharge Educational Recruiter Person: yes (10/03/2016 22:36:Ariella Paige RN) Person to Help after Discharge: yes (10/03/2016 22:36:Ariella Paige RN) Currently Using Commun Resources: Yes (10/03/2016 22:36:Ariella Paige RN) Specify Current Resource Used: Medicaid (10/03/2016 22:36:Ariella Paige RN) Car Seat for Discharge: Yes (10/03/2016 22:36:Ariella Paige RN) Adoption Requested: No (10/03/2016 22:36:Ariella Paige RN) LABS Blood Type: O Positive (10/03/2016 22:36:Meenu Steiner RN) Antibody Screen: Negative (10/03/2016 22:36:Meenu Steiner RN) Rho(G) this : Not Applicable (10/03/2016 22:36:Meenu Steiner RN) Hemoglobin: 11.9 L (10/04/2016 00:23:QS system process) Hematocrit: 34.0 L (10/04/2016 00:23:QS system process) MCV: 89 (10/04/2016 00:23:QS system process) Group Beta Strep: Unknown (10/03/2016 22:36:Meenu Steiner RN) RPR/VDRL: Nonreactive (10/03/2016 22:36:Meenu Steiner RN) HIV Results: NEGATIVE (10/04/2016 00:55:QS system process) Hepatitis B: Negative (10/03/2016 22:36:Meenu Steiner RN) Rubella: Immune (10/03/2016 22:36:Meenu Steiner RN) Varicella: Susceptible (10/03/2016 22:36:Meenu Steiner RN) OB/PREVIOUS HISTORY Previous Procedures: Ultrasound; NST (10/03/2016 22:36:Ariella Paige RN) Current Procedures: Ultrasound; NST (10/03/2016 22:36:Ariella Paige RN) History of Previous : Yes (10/03/2016 22:36:Ariella Paige RN) History of Gestational Diabetes: No (10/03/2016 22:36:Ariella Paige RN) History of PIH: No (10/03/2016 22:36:Ariella Paige RN) History of Incompetent Cervix: No (10/03/2016 22:36:Ariella Paige RN) History of Placenta Previa/Abrup: No (10/03/2016 22:36:Ariella Paige RN) History of Macrosomia: No (10/03/2016 22:36:Ariella Paige RN) History of IUGR: No (10/03/2016 22:36:Ariella Paige RN) History of Hemorrhage: No (10/03/2016 22:36:Ariella Paige RN) History of Loss/Stillborn: No (10/03/2016 22:36:Ariella Paige RN) History of : No (10/03/2016 22:36:Ariella Paige RN) History of D (Rh) Sensitization: No (10/03/2016 22:36:Ariella Paige RN) History Recurrent Loss/Stillborn: No (10/03/2016 22:36:Ariella Paige RN) History Depression/PP Depression: Yes (10/03/2016 22:36:Ariella Paige RN) History of Uterine Anomaly/FARRUKH: No (10/03/2016 22:36:Ariella Paige RN) History of Infertility: No (10/03/2016 22:36:Ariella Paige RN) History of ART Treatment: No (10/03/2016 22:36:Ariella Paige RN) History of FARRUKH: No (10/03/2016 22:36:Ariella Paige RN) Comments Obstetrical History: g1- 2003 SAB g2- 2010 Twin boy c/s 37.5 g3- 05/2015 c/s boy 39 wks g4- current (10/03/2016 22:36:Ariella Paige RN) MEDICAL HISTORY Med Hx Diabetes: No (10/03/2016 22:36:Ariella Paige RN) Med Hx Hypertension: No (10/03/2016 22:36:Ariella Paige RN) Med Hx Heart Disease: No (10/03/2016 22:36:Ariella Paige RN) Med Hx Autoimmune Disorder: No (10/03/2016 22:36:Ariella Paige RN) Med Hx Kidney Disease/UTI: No (10/03/2016 22:36:Ariella Paige RN) Med Hx Neurologic/Epilepsy: No (10/03/2016 22:36:Ariella Paige RN) Med Hx Psychiatric Disorders: No (10/03/2016 22:36:Ariella Paige RN) Med Hx Hepatitis/Liver Disease: No (10/03/2016 22:36:Ariella Paige RN) Med Hx Varicosities/Phlebitis: No (10/03/2016 22:36:Ariella Paige RN) Med Hx Thyroid Dysfunction: No (10/03/2016 22:36:Ariella Paige RN) Med Hx Trauma/Violence: No (10/03/2016 22:36:Ariella Paige RN) Med Hx Blood Transfusion: No (10/03/2016 22:36:Ariella Paige RN) Med Hx Pulmonary (Asthma,TB): No (10/03/2016 22:36:Ariella Paige RN) Med Hx Breast: No (10/03/2016 22:36:Ariella Paige RN) Med Hx RN GASTROENTEROLOGY Surgery: No (10/03/2016 22:36:Ariella Paige RN) Med Hx Hospitalization/Surgery: Yes (10/03/2016 22:36:Ariella Paige RN) Med Hx Anesthetic Complications: No (10/03/2016 22:36:Ariella Paige RN) Med Hx Abnormal Pap Smear: No (10/03/2016 22:36:Ariella Paige RN) Other Medical Diseases: No (10/03/2016 22:36:Ariella Paige RN) Med Hx Significant Family Hx: No (10/03/2016 22:36:Ariella Paige RN) INFECTIOUS HISTORY Inf Hx Gonorrhea: No (10/03/2016 22:36:Ariella Paige RN) Inf Hx Chlamydia: No (10/03/2016 22:36:Ariella Paige RN) Inf Hx Syphilis: No (10/03/2016 22:36:Ariella Paige RN) Inf Hx HIV/AIDS: No (10/03/2016 22:36:Ariella Paige RN) Inf Hx Human Papilloma Virus: No (10/03/2016 22:36:Ariella Paige RN) Inf Hx Pt/Partner Genital Herpes: No (10/03/2016 22:36:Ariella Paige RN) Inf Hx Tuberculosis/Exposure: No (10/03/2016 22:36:Ariella Paige RN) Inf Hx Hepatitis B,C: No (10/03/2016 22:36:Ariella Paige RN) Inf Hx Rash or Viral Illness: No (10/03/2016 22:36:Ariella Paige RN) GENETIC HISTORY Gen Hx Age >=35 at MAURA: No (10/03/2016 22:36:Ariella Paige RN) Gen Hx Thalassemia: No (10/03/2016 22:36:Ariella Paige RN) Gen Hx Congenital Heart Defect: No (10/03/2016 22:36:Ariella Paige RN) Gen Hx Neural Tube Defect: No (10/03/2016 22:36:Ariella Paige RN) Gen Hx Down's Syndrome: No (10/03/2016 22:36:Ariella Paige RN) Gen Hx Dre-Sachs: No (10/03/2016 22:36:Ariella Paige RN) Gen Hx Nava: No (10/03/2016 22:36:Ariella Paige RN) Gen Hx Familial Dysautonomia: No (10/03/2016 22:36:Ariella Paige RN) Gen Hx Sickle Cell Disease/Trait: No (10/03/2016 22:36:Ariella Paige RN) Gen Hx Hemophilia/Blood Disorder: No (10/03/2016 22:36:Ariella Paige RN) Gen Hx Muscular Dystrophy: No (10/03/2016 22:36:Ariella Paige RN) Gen Hx Cystic Fibrosis: No (10/03/2016 22:36:Ariella Paige RN) Gen Hx Huntingtons Chorea: No (10/03/2016 22:36:Ariella Paige RN) Gen Hx Mental Retardation/Autism: No (10/03/2016 22:36:Ariella Paige RN) Gen Hx Tested for Fragile X: No (10/03/2016 22:36:Ariella Paige RN) Gen Hx Other Inher/Chromosomal: No (10/03/2016 22:36:Ariella Paige RN) Gen Hx Maternal Metabolic DO: No (10/03/2016 22:36:Ariella Paige RN) Gen Hx Pt Father or FOB Defect: No (10/03/2016 22:36:Ariella Paige RN) Gen Hx Other Genetic History: No (10/03/2016 22:36:Ariella Paige RN) Gen Hx Drugs/Meds since LMP: No (10/03/2016 22:36:Ariella Paige RN)
--- NOTE | 2016-10-05 06:16 | L&D Care Plan ---
LD CARE PLANS Datetime Report Generated by CPN: 10/05/2016 06:15 Datetime: 10/04/2016 00:16 Pain State: Actual (Meenu Steiner RN) Related To: Labor and Delivery Process; Surgical Procedure; Treatment and Procedures; Post (Meenu Steiner RN) Goal(s): Patients Pain will be Assessed and Managed; Patient will Verbalize Adequate Relief of Pain or the Ability to [place] with Current Pain (Meenu Steiner RN) Interventions: Assess Pain Severity on Scale of 0 (None) to 5 (Severe); Assess Type, Location and Intensity of Pain Each Time Client Reports Discomfort and Notify Provider if Unusal Pain Develops; Encourage Proper Breathing and Relaxation Techniques; Offer Alternatives Such as Repositioning, Calm Environment, Massages, Diversional Activities, Ice Pack, Splinting, and Ambulation; Administer Analgesics as Ordered; Assist with Epidural Placement as Appropriate; Evaluate Therapeutic Effectiveness of Medication and Treatments (Meenu Steiner RN) Outcome: Patient will Report Absence or Relief of Pain Consistent with Established Pain Goal (Meenu Steiner RN) Status: Ongoing (Meenu Steiner RN) Outcome: Patient will have a Decrease in Signs and Symptoms of Discomfort (Meenu Steiner RN) Status: Ongoing (Meenu Steiner RN) Outcome: Pain will be Controlled During Procedures (Meenu Steiner RN) Status: Ongoing (Meenu Steiner RN) Anxiety State: Risk For (Meenu Steiner RN) Related To: Labor and Delivery Process; Surgical Procedure; Perceived or Actual Threat to ; Medical Interventions; Significant Life Event (Meenu Steiner RN) Goal(s): Patient will have Decreased Anxiety and be able to Function at Acceptable Levels (Meenu Steiner RN) Interventions: Assess Verbal and Nonverbal Behavioral Indicators of Anxiety; Assist Patient to Identify and Verbalize Symptoms of Anxiety; Identify and Demonstrate Techniques to Control Anxiety; Assist Patient with Coping Mechanisms to Manage Anxiety; Provide Theraputic Touch for the Patient; Explain to Patient, Using a Calm Reassuring Approach and Nonmedical Terms, All Activities, Procedures, and Concerns; Instruct Patient and Family about Post Discharge Care, Limitations, Symptoms to Report and Resources Available (Meenu Steiner RN) Outcome: Patient will Identify, Verbalize and Demonstrate Techniques to Control Anxiety (Meenu Steiner RN) Status: Ongoing (Meenu Steiner RN) Outcome: Patient's Posture, Facial Expressions, Gestures and Activity Level will Reflect Decreased Anxiety (Meenu Steiner RN) Status: Ongoing (Meenu Steiner RN) Outcome: Patient will Verbalize a Sense of Control and/or Acceptance of the Situation (Meenu Steiner RN) Status: Ongoing (Meenu Steiner RN) Outcome: Patient will Identify and Utilize Support Person (Meenu Steiner RN) Status: Ongoing (Meenu Steiner RN) Knowledge Deficit State: Risk For (Meenu Steiner RN) Related To: Labor and Delivery Process; Impending Alterations in Family Dynamics (Meenu Steiner RN) Goal(s): Patient will Accurately Verbalize Understanding of Plan of Care and Treatment; Patient and Family will Accurately Verbalize Understanding of the Disease Process (Meenu Steiner RN) Interventions: Assess Motivation and Willingness of Patient/Family to Learn; Assess Preferred Learning Mode: One to One Instruction, Reading, Videos, Group Discussion or Demonstration; Assess Barriers to Learning: Pain, Emotional State, Language Barrier, Cognitive Impairment, Visual or Hearing Deficits; Assess Patient and Family Knowledge of Disease Process, Medications and Treatment; Discuss Therapy and/or Treatment Options, Describe Rationale Behind Management, Therapy and Treatment Recommendations; Instruct Patient and Family on Signs and Symptoms to Report; Instruct Patient and Family on Medication Effects and Side Effects; Provide Appropriate and Timely Education Using Multiple Techniques; Provide Patient and Family with Support Group Information and Resources; Give Clear and Thorough Explanations and Demonstrations (Meenu Steiner RN) Outcome: Patient and Family will Verbalize Understanding of Condition, Treatment and Signs and Symptoms to Report (Meenu Steiner RN) Status: Ongoing (Meenu Steiner RN) Outcome: Patient will Identify Perceived Learning Needs and Express Motivation to Learn (Meenu Steiner RN) Status: Ongoing (Meenu Steiner RN) Outcome: Patient will Verbalize Understanding of Desired Content, and/or Performs Desired Skill Prior to Discharge (Meenu Steiner RN) Status: Ongoing (Meenu Steiner RN) Infection State: Risk For (Meenu Steiner RN) Related To: Surgical Procedures; Invasive Procedures (Meenu Steiner RN) Goal(s): The Patient will be Free of Infection, Vital Signs Stable and Lab Work within Normal Parameters (Meenu Steiner RN) Interventions: Instruct and Reinforce Proper Handwashing, Hygiene, and Care Techniques to Patient and Family; Monitor Vital Signs; Monitor Patient for the Following Signs of Infection: Fever, Abdominal Tenderness, Unusual Discharge; Monitor Aminiotic Fluid, Urine and Lochia for Color and Odor; Observe Wounds, Incisions and Invasive Line Sites for Redness, Drainage and Edema; Assess IV Sites per Hospital Policy; Monitor Lab and Test Results and Notify Provider of Abnormal Findings; Assess Nutritional Status and Promote Good Nutrition (Meenu Steiner RN) Outcome: Patient will Remain Free of Infection (Meenu Steiner RN) Status: Ongoing (Meenu Steiner RN) Outcome: Infection will be Recognized Early to Allow for Prompt Treatment (Meenu Steiner RN) Status: Ongoing (Meenu Steiner RN) Outcome: Patient will have Vital Signs Within Expected Range (Meenu Steiner RN) Status: Ongoing (Meenu Steiner RN) Fluid Volume State: Risk For (Meenu Steiner RN) Related To: Surgical Procedures (Meenu Steiner RN) Goal(s): Patient will Achieve and Maintain a Balanced Fluid Volume Status; Hemodynamically Stable (Meenu Steiner RN) Interventions: Monitor Vital Signs; Auscultate Breath Sounds; Monitor Patient for Skin Turgor, Mucous Membranes, Dry Skin, Weakness, Headaches and Confusion; Provide Oral Fluids as Ordered; Initiate and Maintain Intravenous Fluids as Ordered; Monitor Intake and Output as Indicated Per Patient Status; Accurately Measure Blood Loss; Monitor Lab and Test Results as Obtained and Notify Provider of Abnormal Findings; Monitor Patient's Weight (Meenu Steiner RN) Outcome: Patient will have Clear Lung Sounds (Meenu Steiner RN) Status: Ongoing (Meenu Steiner RN) Outcome: Patient will have Vital Signs within Expected Range (Meenu Steiner RN) Status: Ongoing (Meenu Steiner RN) Outcome: Urine Output will be within Expected Range (Meenu Steiner RN) Status: Ongoing (Meenu Steiner RN) Outcome: Patient will have Minimal Generalized or Upper Extremity Edema (Meenu Steiner RN) Status: Ongoing (Meenu Steiner DHARMESH) Injury State: Risk For (Meenu Steiner RN) Related To: Anesthesia; Risk to Status; Uteroplacental Perfusion; Uterine Rupture (Meenu Steiner RN) Goal(s): Patient will Remain Free from Injury (Meenu Steiner RN) Interventions: Monitoring as per Hospital Protocol; Assess Neurological Status; Perform Risk Assessment of Patients with Induction and ; Perform Fall Risk Assessment and Prevention per Hospital Protocol; Perform DVT Risk Assessment and Prophylaxis per Hospital Protocol; Ensure that Oxygen, Suction, and Resuscitation Medications and Equipment are Readily Available; Confirm Patient ID Prior to Procedure(s) and Medication Administration per Hospital Policy (Meenu Steiner RN) Outcome: Successful Fall Risk Prevention (Meenu Steiner RN) Status: Ongoing (Meenu Steiner RN) Outcome: Patient will Deliver Infant without Adverse [place] (Meenu Steiner RN) Status: Ongoing (Meenu Steiner RN) Outcome: Patient's Neurological Status will Remain Stable (Meenu Steiner RN) Status: Ongoing (Meenu Steiner, DHARMESH) Impaired Skin Integrity State: Risk For (Meenu Steiner RN) Related To: Surgical Procedures; Invasive Procedures (Meenu Steiner RN) Goal(s): Patient will Maintain Optimal Skin Integrity, Free of Breakdown, Injury or Infection (Meenu Steiner RN) Interventions: Complete Screening for Pressure Ulcer Risk and Initiate Protocol per Hospital Policy; Monitor Site of Skin Impairment for Color Changes, Redness, Swelling, Warmth, Pain or Other Signs of Infection; Encourage and Assist with Position Changes; Monitor Patient's Mobility Status; Provide Adequate Nutrition and Fluids; Teach Patient Appropriate Hygienic Care; Teach Patient/Family Skin Care Management (Meenu Steiner RN) Outcome: Patient will not have Evidence of Injury Such as Skin Breakdown, Scrapes, Cuts, or Bruising (Meenu Steiner RN) Status: Ongoing (Meenu Steiner RN) Outcome: Patient will Report Any Altered Sensation or Pain at Site of Skin Impairment (Meenu Steiner RN) Status: Ongoing (Meenu Steiner RN) Outcome: Patients Incisions and Wounds will be without Signs or Symptoms of Infection (Meenu Steiner RN) Status: Ongoing (Meenu Steiner RN) Outcome: Patient will Demonstrate Understanding of Plan to Heal Skin and Prevent Reinjury and Verbalize Risk Factors (Meenu Steiner RN) Status: Ongoing (Meenu Steiner RN)
[2016-10-05 07:12] LABS: HGB HCT DIFFERENCE 1.7; MEAN CORPUSCULAR HEMOGLOBIN 31.3 pg (27.0-33.4); MEAN CORPUSCULAR HGB CONC 35.3 g/dL (32.0-36.0); MEAN CORPUSCULAR VOLUME 89 fl (80-97); RED BLOOD COUNT 3.15 10^6/uL (3.72-5.28); RED CELL DISTRIBUTION WIDTH 13.9 % (11.5-14.0); WHITE BLOOD COUNT 13.7 10^3/uL (4.0-10.5)
[2016-10-05 07:15] LABS: HEMOGLOBIN 9.9 g/dL (12.0-15.5)
--- NOTE | 2016-10-05 09:08 | PDOC PROGRESS REPORT ---
Subjective-OB Subjective: Post Delivery Day: 1 31 year old. Denies any needs at this time, post-repeat c/s, baby was transferred to higher level facility, pt desires to have early discharge, pain is well controlled with current pain meds, lochia is stable, passing gas, voiding without difficulty. States increased anxiety, but denies SI/HI, was on zoloft after her twins would like to re-start. Physical Exam (OB) Vital Signs: Temp Pulse Resp BP Pulse Ox 97.8 F 94 18 132/72 H 100 10/05/16 04:37 10/05/16 04:37 10/05/16 04:37 10/05/16 04:37 10/05/16 04:37 Intake & Output 10/04/16 10/05/16 10/06/16 06:59 06:59 06:59 Intake Total 1910 Output Total 350 1100 Balance -350 810 Weight 69.3 kg - Dressing Removed: No - medipore, opsite Incision: Dressing, Well Approximated - Lochia Lochia Amount: Scant < 10 ml Lochia Color: Rubra/Red - Abdomen Description: Tender, Soft, Round Hernia Present: No Fundal Description: Firm, Midline Fundal Height: u/u - u/2 Objective-Diagnostic Laboratory: 10/05/16 06:30 10/05/16 06:30 WBC 13.7 H RBC 3.15 L Hgb 9.9 L Hct 28.0 L MCV 89 MCH 31.3 MCHC 35.3 RDW 13.9 Plt Count 181 Assessment and Plan(PN) - Assessment and Plan (1) Status post repeat low transverse section Is this a current diagnosis for this admission?: YesPlan: early d/c home today (2) History of heroin abuse Is this a current diagnosis for this admission?: YesPlan: d/c order planner (3) Depression Qualifiers: Depression Type: unspecified Qualified Code(s): F32.9 - Major depressive disorder, single episode, unspecified Is this a current diagnosis for this admission?: YesPlan: started on zoloft reviewed ER warning signs pt will make f/u at [facility] in 1 week (4) Marijuana abuse Is this a current diagnosis for this admission?: YesPlan: d/c order planner (5) Acute blood loss anemia Is this a current diagnosis for this admission?: YesPlan: ferrous sulfate increase dietary iron - Time Spent with Patient Time with patient: Less than 15 minutes Critical Time spent with patient: Less than 15 minutes Medications reviewed and adjusted accordingly: Yes - Disposition Anticipated Discharge: Home Within: within 24 hours
[2016-10-05 09:14] VITALS: BP 139/87
--- NOTE | 2016-10-05 09:15 | PDOC DISCHARGE SUMMARY ---
Final Diagnosis Discharge Date: 10/05/16 - Final Diagnosis (1) Status post repeat low transverse section Is this a current diagnosis for this admission?: Yes (2) History of heroin abuse Is this a current diagnosis for this admission?: Yes (3) Depression Is this a current diagnosis for this admission?: Yes (4) Marijuana abuse Is this a current diagnosis for this admission?: Yes (5) Acute blood loss anemia Is this a current diagnosis for this admission?: Yes Discharge Data - Discharge Medication Home Medications: Vit #76/Iron,Carb/FA [Pnv 29-1 Tablet] 1 tab PO DAILY 10/03/16 Docusate Sodium [Colace 100 mg Capsule] 100 mg PO BID #60 capsule 10/05/16 Ferrous Sulfate [Feosol 325 mg Tablet] 325 mg PO DAILY #30 tab 10/05/16 Ibuprofen [Motrin 800 mg Tablet] 800 mg PO Q6 #60 tablet 10/05/16 Oxycodone HCl/Acetaminophen [Percocet 5-325 mg Tablet] 2 tab PO Q4HP PRN #60 tablet 10/05/16 Sertraline HCl [Zoloft] 25 mg PO DAILY #30 tablet 10/05/16 Gestational Age: 41.3 Reason(s) for Admission: Onset of Labor, Ceasarean Section-Repeat, Status Procedures: NST Intrapartum Procedure(s): : Low Cervical, Transverse - [place] Data Baby 1 Male at 1 minute: 8 at 5 minutes: 8 Weight: 2352 kg Home with Mother: No - transfer to higher level care Complications: Yes - seizures - Diagnosis Test Laboratory: Temp Pulse Resp BP Pulse Ox 97.8 F 94 18 132/72 H 100 10/05/16 04:37 10/05/16 04:37 10/05/16 04:37 10/05/16 04:37 10/05/16 04:37 10/03/16 10/04/16 10/05/16 22:50 00:23 06:30 RBC 3.83 3.15 L Hgb 11.9 L 9.9 L Hct 34.0 L 28.0 L Urine Opiates Screen NEGATIVE - Discharge information/Instructions Discharge Activity: Activity As Tolerated, No Driving, No Lifting Over 10 Pounds , Pelvic Rest, No tub bath Discharge Diet: Regular Disposition: HOME, SELF-CARE Follow up with: [facility] in: 1, Weeks - started on zoloft at d/c
[2016-10-05] MEDS: DOCUSATE SODIUM 100 MG CAPSULE PO SCH (10:39)
[2016-10-05] MEDS: PRENATAL VITAMIN W-O CA NO5/FE FUMARATE/FA CAPSULE PO SCH (10:39)
[2016-10-06 06:27] LABS: HEPATITIS C VIRUS AB >11.0 s/co ratio (0.0-0.9)
== END 2016-10-05 12:35 | disposition home or self-care (01) | DRG 765 ==
LOC: LC 22:34 → LR 10-04 00:14 → 2S 10-04 04:49
PROVIDERS: ADMIT Obstetrics & Gynecology; ATTEND Obstetrics & Gynecology
PROC: 10D00Z1 Extraction of Products of Conception, Low, Open Approach (ICD-10-PCS; principal; 2016-10-04)
PROC: 4A1HXCZ Monitoring of Products of Conception, Cardiac Rate, External Approach (ICD-10-PCS; 2016-10-04)
PROC: 3E0234Z Introduction of Serum, Toxoid and Vaccine into Muscle, Percutaneous Approach (ICD-10-PCS; 2016-10-05)
DX: O34.211 Maternal care for low transverse scar from previous cesarean delivery (principal); O99.324 Drug use complicating childbirth; D62 Acute posthemorrhagic anemia; O99.334 Smoking (tobacco) complicating childbirth; O99.02 Anemia complicating childbirth; F17.210 Nicotine dependence, cigarettes, uncomplicated; F11.10 Opioid abuse, uncomplicated; F12.10 Cannabis abuse, uncomplicated; O99.344 Other mental disorders complicating childbirth; F32.9 Major depressive disorder, single episode, unspecified; Z37.0 Single live birth; Z3A.41 41 weeks gestation of pregnancy; Z23 Encounter for immunization
CPT/HCPCS: 1961; 36415; 80307; 81005; 85025; 85027; 86592; 86701; 86803; 86804; 86850; 86900; 86901; 88307; 90715; 94799; J0131; J0690; J1100; J1170; J1885; J2250; J2370; J2405; J2590; J2765; J3010; J3490

== ENCOUNTER 2016-10-25 23:07 | Emergency (ER) | payer MEDICAID ==
[2016-10-26] MEDS ORDERED: CLINDAMYCIN HCL 150 MG CAPSULE PO ONE (02:23)
[2016-10-26] MEDS ORDERED: HYDROCODONE/ACETAMINOPHEN 5-325 MG 6 TAB/DSPK PO PRN (02:30)
--- NOTE | 2016-10-26 02:31 | ER Document Report ---
ED General - General Chief Complaint: Incision Problem Stated Complaint: POST OP ISSUE Notes: Patient is a pleasant 28 presents with complaint of concern of infection at her incision site. She had a performed on October 04. This is performed by Dr. Isbell. Approximately 10 days ago she started developing some abnormal drainage from the area. She was placed on Keflex. She was told to use a Q-tip soaked in peroxide to clean the area daily. She says she's been doing this and it seems as if the wound continues to result purulent foul-smelling drainage. There is not been any redness of skin. She does have some pain associated with the wound. She's had no fevers. No vomiting. No diarrhea. She's been taking her antibiotics as prescribed. She did call and speak with the fnps covering for the group. The fnps told her to come to the ER for reevaluation. She also has noticed that her stitches are not resolving. She had dissolvable stitches placed but they are starting to protrude through the skin. TRAVEL OUTSIDE OF THE [place] IN LAST 30 DAYS: No - Related Data Allergies/Adverse Reactions: No Known Allergies Allergy (Verified 10/25/16 23:44) Past Medical History - Social History Smoking Status: Current Every Day Smoker Chew tobacco use (# tins/day): No Frequency of alcohol use: None Drug Abuse: None Family History: Reviewed & Not Pertinent Renal/ Medical History: Denies: Hx Peritoneal Dialysis Review of Systems - Review of Systems Notes: My Normal Review Basic REVIEW OF SYSTEMS: CONSTITUTIONAL : Denies fever, chills, or sweats. Denies recent illness. RESPIRATORY: Denies cough, cold, or chest congestion. Denies shortness of breath, difficulty breathing, or wheezing. GASTROINTESTINAL: Some pain over incision site with some foul-smelling discharge. GENITOURINARY: Denies difficulty urinating, painful urination, burning, frequency, or blood in urine. FEMALE GENITOURINARY: Some vaginal bleeding. Pelvic pain. MUSCULOSKELETAL: Denies neck or back pain or joint pain or swelling. SKIN: Denies rash or skin lesions. ALL OTHER SYSTEMS REVIEWED AND NEGATIVE. Physical Exam - Vital signs Vitals: Temp Pulse Resp BP Pulse Ox 98.1 F 99 18 139/92 H 100 10/25/16 23:18 10/25/16 23:18 10/25/16 23:18 10/25/16 23:18 10/25/16 23:18 - Notes Notes: General Appearance: Well nourished, alert, cooperative, no acute distress, mild obvious discomfort. Well-appearing Vitals: reviewed, See vital signs table. Lungs: No wheezing, No rales, No rhonci, No accessory muscle use, good air exchange bilaterally. Heart: Normal rate, Regular rythm, No murmur, no rub Abdomen: Normal BS, soft, No rigidity, some mild tenderness to palpation around the surgical incision. There is no fluctuance. This no mass palpation. Abdomen is very soft., No guarding, no rebound, no abdominal masses, no organomegaly. There is a pad over the wound that does have a small amount of fall smelling discharge on it. Do not see any active using discharge from the wound itself. Has no redness. No erythema. Patient does have some visible stitches are protruding through the skin. Extremities: strength 5/5 in all extremities, good pulses in all extremities, no swelling or tenderness in the extremities, no edema. Skin: warm, dry, appropriate color, no rash Neuro: speech clear, oriented x 3, normal affect, responds appropriately to questions. Course - Vital Signs Vital signs: Temp Pulse Resp BP Pulse Ox 98.1 F 99 18 139/92 H 100 10/25/16 23:18 10/25/16 23:18 10/25/16 23:18 10/25/16 23:18 10/25/16 23:18 - Transfer of Care Notes: 10/26/16 02:46 I did a bedside ultrasound. I did not see any subcutaneous abscesses. Was able to visualize down to the bowel and did not see any fluid collections consistent with abscess on my bedside ultrasound. Patient's physical exam is not consistent with abscess either in that her abdomen was very flat, there is no fluctuance or mass palpation, and there is no purulent discharge that protrudes from the wound with a push on the abdomen. She has been on Keflex pectineus to have abnormal discharge. I think switching her to clindamycin would be a better option being that this would cover for possible staph infection. I did discuss this with Dr. Enriquez, clinical program consultant information assurance officer, who agrees with plan and says she would inform the office to make sure she has a follow-up appointment on Friday. I did inform the patient the plan and she agrees to follow-up with the office on Friday. She's encouraged return to ER immediately if she has redness, swelling of her abdomen, increased drainage, fevers, or worsening pain. Patient agrees with plan and will be discharged home. Dictation of this chart was performed using voice recognition software; therefore, there may be some unintended grammatical errors. Discharge - Discharge Clinical Impression: Post op infection Qualifiers: Encounter type: initial encounter Qualified Code(s): T81.4XXA - Infection following a procedure, initial encounter Condition: Good Disposition: HOME, SELF-CARE Instructions: Oral Narcotic Medication ([facility]) Additional Instructions: [facility] I called and spoke with Dr. Enriquez who wants you to call the office Friday morning and they will fit you in for reevaluation. Please start taking the clindamycin. You can stop taking the Keflex. You can stop using the peroxide on the wound. Please return to the ER immediately if you develop fevers, redness of the skin, increased drainage, increasing pain, or if you feel you are getting worse in any way. Prescriptions: Clindamycin HCl 300 mg PO ASDIR #56 capsule
[2016-10-26 02:51] VITALS: BP 128/82
== END 2016-10-26 02:49 | disposition home or self-care (01) ==
LOC: ER 23:07
DX: O86.0 Infection of obstetric surgical wound (principal); O99.335 Smoking (tobacco) complicating the puerperium; F17.200 Nicotine dependence, unspecified, uncomplicated
CPT/HCPCS: 99283; J3490

== ENCOUNTER 2017-03-05 10:00 | Emergency (ER) | payer MEDICAID ==
--- NOTE | 2017-03-05 11:01 | ER Document Report ---
ED Neck/Back Problem - General Chief Complaint: Back Pain Stated Complaint: BACK/HIP PAIN Time Seen by Provider: 03/05/17 10:38 Notes: 31 yo female c/o low back pain radiating into hips and legs x 3 days. mild paresthesias to right foot. + familar pain for patient with occasional exacerbations. no new trauma. pt reports sleeping on air mattress prior to pain starting. denies fever, bowel/bladder dysfunction. pt is 5mos post , C section TRAVEL OUTSIDE OF THE [place] IN LAST 30 DAYS: No - HPI Onset: Other - 3 days Onset: Gradual Timing: Constant Quality of pain: Achy, Dull Pain Level: 4 Recent injury: No Associated symptoms: Numbness/tingling - right foot, Radiation to leg - bilat hips and thighs. denies: Chills, Fever, Incontinence, Motor loss, Unable to urinate Exacerbated by: Other - changing positions Relieved by: Nothing - no relief with naprosyn and heat Similar symptoms previously: Yes Recently seen / treated by doctor: No - Related Data Allergies/Adverse Reactions: No Known Allergies Allergy (Verified 03/05/17 10:14) Past Medical History - General Information source: Patient - Social History Smoking Status: Never Smoker Frequency of alcohol use: Occasional Drug Abuse: None Lives with: Family Family History: Reviewed & Not Pertinent Patient has suicidal ideation: No Patient has homicidal ideation: No - Medical History Medical History: Negative Renal/ Medical History: Denies: Hx Peritoneal Dialysis Psychiatric Medical History: Reports: Hx Depression - Past Surgical History: Reports: Hx Section - x3 Review of Systems - Review of Systems Constitutional: No symptoms reported EENT: No symptoms reported Cardiovascular: No symptoms reported Respiratory: No symptoms reported Gastrointestinal: No symptoms reported Genitourinary: No symptoms reported Female Genitourinary: No symptoms reported Musculoskeletal: Back pain Skin: No symptoms reported Hematologic/Lymphatic: No symptoms reported Neurological/Psychological: No symptoms reported Physical Exam - Vital signs Vitals: Temp Pulse Resp BP Pulse Ox 100.5 F H 116 H 16 122/73 100 03/05/17 10:16 03/05/17 10:16 03/05/17 10:16 03/05/17 10:16 03/05/17 10:16 Interpretation: Tachycardic, Febrile - low grade fever - General General appearance: Appears well, Alert In distress: None - HEENT Head: Normocephalic, Atraumatic Eyes: Normal Pupils: PERRL - Respiratory Respiratory status: No respiratory distress Chest status: Nontender Breath sounds: Normal Chest palpation: Normal - Cardiovascular Rhythm: Regular Heart sounds: Normal auscultation Murmur: No - Abdominal Inspection: Normal Distension: No distension Bowel sounds: Normal Tenderness: Nontender Organomegaly: No organomegaly - Back Back: Tender - lumbar spinal and paraspinal tenderness. neg SLT,neg heel/toe. No: CVA tenderness - Extremities General upper extremity: Normal inspection, Nontender, Normal color, Normal ROM , Normal temperature General lower extremity: Normal inspection, Nontender, Normal color, Normal ROM , Normal temperature, Normal weight bearing. No: Melissa's sign - Neurological Neuro grossly intact: Yes Cognition: Normal Orientation: AAOx4 [place] Coma Scale Eye Opening: Spontaneous [place] Coma Scale Verbal: Oriented [place] Coma Scale Motor: Obeys Commands [place] Coma Scale Total: 15 Speech: Normal Motor strength normal: LUE, RUE, LLE, RLE Sensory: Normal - Psychological Associated symptoms: Normal affect, Normal mood - Skin Skin Temperature: Warm Skin Moisture: Dry Skin Color: Normal Course - Re-evaluation Re-evalutation: 03/05/17 11:02 H&P c/w nonspecific acute low back pain. no nuerologic deficits or red flags identified. no signs of cord compression, no hx/o metastatic disease. Pt does have a low grade fever today. will check urine. low clinical suspicion for emergent condition therefore no emergent imaging indicated 03/05/17 11:41 urinalysis negative for infection. SG 1035. will hydrate with 2 L IV NS and medicate for pain with Toradol 03/05/17 13:22 labs unremarkable. results reviewed with Dr Kaiser. pain is reproducable, no red flags. still uncomfortable. will medicate for pain 03/05/17 14:13 pt feeling better after fluids and meds. pt stable for discharge and follow up with primary care - Vital Signs Vital signs: Temp Pulse Resp BP Pulse Ox 99.0 F 101 H 16 121/73 100 03/05/17 11:43 03/05/17 11:43 03/05/17 11:43 03/05/17 11:43 03/05/17 11:43 - Laboratory Result Diagrams: 03/05/17 12:52 03/05/17 12:52 Laboratory results interpreted by me: 03/05/17 03/05/17 03/05/17 11:08 12:52 12:52 WBC 3.9 L RDW 16.9 H Plt Count 102 L Seg Neutrophils % 83.9 H Lymphocytes % 7.9 L Absolute Lymphocytes 0.3 L Carbon Dioxide 21 L AST 38 H Urine Protein 30 H Urine Ascorbic Acid 20 H Discharge - Discharge Clinical Impression: Dehydration, mild Low back pain Qualifiers: Chronicity: acute Back pain laterality: right Sciatica presence: with sciatica Sciatica laterality: bilateral sciatica Qualified Code(s): M54.42 - Lumbago with sciatica, left side Condition: Stable Disposition: HOME, SELF-CARE Instructions: Ice Packs ([facility]), Warm Packs ([facility]), Low Back Pain ([facility]), Toradol Injection ([facility]), Muscle Relaxers ([facility]), Intravenous (IV) Fluids ([facility]) Additional Instructions: You were given IV fluids today for mild dehydration Take medications as prescribed for your low back pain Please follow up with your primary care for further evaluation if symptoms persist Return to ER for any worsening Prescriptions: Ibuprofen [Motrin 800 Mg Tablet] 800 mg PO Q6H #20 tablet Methocarbamol [Robaxin 500 Mg Tablet] 1,000 mg PO Q6 #30 tablet Oxycodone HCl/Acetaminophen [Percocet 5-325 mg Tablet] 1 - 2 tab PO ASDIR PRN # 15 tablet PRN Reason: Tramadol HCl [Ultram 50 mg Tablet] 50 mg PO ASDIR PRN #20 tablet PRN Reason: Referrals: PERRI GOFF PA-C [Primary Care Provider] - Follow up as needed
[2017-03-05 11:30] LABS: APPEARANCE,URINE SLIGHTLY-CLOUDY; BILIRUBIN,URINE NEGATIVE (NEGATIVE); GLUCOSE, URINE NEGATIVE (NEGATIVE); KETONES,URINE NEGATIVE (NEGATIVE); LEUKOCYTE ESTERASE,URINE NEGATIVE (NEGATIVE); NITRITE,URINE NEGATIVE (NEGATIVE); PROTEIN,URINE 30 mg/dL (NEGATIVE); URINE SPECIFIC GRAVITY 1.035; UROBILINOGEN,URINE NEGATIVE mg/dL (<2.0)
[2017-03-05] MEDS ORDERED: KETOROLAC TROMETHAMINE INJ/PF 30 MG/1 ML SDV IV ONE (11:56)
[2017-03-05] MEDS ORDERED: NORMAL SALINE 1000 ML 2,000 ML IV PRN (11:56)
[2017-03-05 13:35] LABS: ABSOLUTE LYMPHOCYTES (AUTO) 0.3 10^3/uL (0.5-4.7); ABSOLUTE MONOCYTES (AUTO) 0.3 10^3/uL (0.1-1.4); ABSOLUTE NEUT (AUTO) 3.3 10^3/uL (1.7-8.2); BASOPHILS % (AUTO) 0.7 % (0-2); HEMATOCRIT 37.3 % (36.0-47.0); HEMOGLOBIN 12.9 g/dL (12.0-15.5); HGB HCT DIFFERENCE 1.4; LYMPHOCYTES % (AUTO) 7.9 % (13-45); MEAN CORPUSCULAR HEMOGLOBIN 29.5 pg (27.0-33.4); MEAN CORPUSCULAR HGB CONC 34.6 g/dL (32.0-36.0); MEAN CORPUSCULAR VOLUME 86 fl (80-97); MONOCYTES % (AUTO) 6.5 % (3-13); RED BLOOD COUNT 4.36 10^6/uL (3.72-5.28); RED CELL DISTRIBUTION WIDTH 16.9 % (11.5-14.0); SEGMENTED NEUTROPHILS % (AUTO) 83.9 % (42-78); WHITE BLOOD COUNT 3.9 10^3/uL (4.0-10.5)
[2017-03-05] MEDS ORDERED: MORPHINE SULFATE 10 MG/ML INJ IV ONE (13:45)
[2017-03-05] MEDS ORDERED: ONDANSETRON HCL INJ/PF 4 MG/2 ML SDV IV ONE (13:45)
[2017-03-05 13:55] LABS: ALANINE AMINOTRANSFERASE 38 U/L (9-52); ALBUMIN 4.2 g/dL (3.5-5.0); ALKALINE PHOSPHATASE 62 U/L (38-126); ANION GAP 14 (5-19); ASPARTATE AMINO TRANSFERASE 38 U/L (14-36); BILIRUBIN,DIRECT 0.4 mg/dL (0.0-0.4); BILIRUBIN,TOTAL 0.7 mg/dL (0.2-1.3); BLOOD UREA NITROGEN 12 mg/dL (7-20); CALCIUM 9.2 mg/dL (8.4-10.2); CARBON DIOXIDE 21 mmol/L (22-30); CHLORIDE 102 mmol/L (98-107); CREATININE RESULT 0.62 mg/dL (0.52-1.25); GLUCOSE 93 mg/dL (75-110); POTASSIUM 3.6 mmol/L (3.6-5.0); SODIUM 137.2 mmol/L (137-145); TOTAL PROTEIN 7.4 g/dL (6.3-8.2)
[2017-03-05 14:36] VITALS: BP 108/52
== END 2017-03-05 14:40 | disposition home or self-care (01) ==
LOC: ER 10:00
DX: E86.0 Dehydration (principal); M54.42 Lumbago with sciatica, left side; R50.9 Fever, unspecified; R20.9 Unspecified disturbances of skin sensation; M54.9 Dorsalgia, unspecified
CPT/HCPCS: 99283; 96361; 96374; 96375; 36415; 85025; 80053; 81001; J1885; J2270; J2405; J7030

== ENCOUNTER 2017-03-20 21:09 | Emergency (ER) | payer MEDICAID ==
[2017-03-20] MEDS ORDERED: NORMAL SALINE 1000 ML 1,000 ML IV ONE (22:16)
[2017-03-20] MEDS ORDERED: ONDANSETRON HCL INJ/PF 4 MG/2 ML SDV IV ONE (22:16)
[2017-03-20] MEDS ORDERED: KETOROLAC TROMETHAMINE INJ/PF 30 MG/1 ML SDV IV ONE (22:16)
[2017-03-20 23:00] LABS: APPEARANCE,URINE SLIGHTLY-CLOUDY; BILIRUBIN,URINE NEGATIVE (NEGATIVE); GLUCOSE, URINE NEGATIVE (NEGATIVE); KETONES,URINE 20 mg/dL (NEGATIVE); LEUKOCYTE ESTERASE,URINE TRACE (NEGATIVE); NITRITE,URINE NEGATIVE (NEGATIVE); PROTEIN,URINE 30 mg/dL (NEGATIVE); URINE SPECIFIC GRAVITY 1.027; UROBILINOGEN,URINE NEGATIVE mg/dL (<2.0)
[2017-03-20 23:01] LABS: ABSOLUTE EOSINOPHILS # (AUTO) 0.1 10^3/uL (0.0-0.6); ABSOLUTE MONOCYTES (AUTO) 0.6 10^3/uL (0.1-1.4); BASOPHILS % (AUTO) 0.6 % (0-2); EOSINOPHILS % (AUTO) 1.1 % (0-6); HEMATOCRIT 32.9 % (36.0-47.0); HEMOGLOBIN 11.5 g/dL (12.0-15.5); HGB HCT DIFFERENCE 1.6; LYMPHOCYTES % (AUTO) 35.4 % (13-45); MEAN CORPUSCULAR HEMOGLOBIN 30.1 pg (27.0-33.4); MEAN CORPUSCULAR VOLUME 86 fl (80-97); MONOCYTES % (AUTO) 10.3 % (3-13); RED BLOOD COUNT 3.82 10^6/uL (3.72-5.28); RED CELL DISTRIBUTION WIDTH 16.7 % (11.5-14.0); SEGMENTED NEUTROPHILS % (AUTO) 52.6 % (42-78); WHITE BLOOD COUNT 5.7 10^3/uL (4.0-10.5)
[2017-03-20 23:18] LABS: ALANINE AMINOTRANSFERASE 25 U/L (9-52); ALBUMIN 4.4 g/dL (3.5-5.0); ALKALINE PHOSPHATASE 45 U/L (38-126); ANION GAP 11 (5-19); ASPARTATE AMINO TRANSFERASE 22 U/L (14-36); BILIRUBIN,DIRECT 0.3 mg/dL (0.0-0.4); BILIRUBIN,TOTAL 0.8 mg/dL (0.2-1.3); BLOOD UREA NITROGEN 9 mg/dL (7-20); CALCIUM 9.5 mg/dL (8.4-10.2); CARBON DIOXIDE 27 mmol/L (22-30); CHLORIDE 101 mmol/L (98-107); CREATININE RESULT 0.54 mg/dL (0.52-1.25); GLUCOSE 89 mg/dL (75-110); LIPASE 33.6 U/L (23-300); POTASSIUM 3.4 mmol/L (3.6-5.0); SODIUM 138.8 mmol/L (137-145); TOTAL PROTEIN 7.5 g/dL (6.3-8.2)
[2017-03-20 23:55] LABS: ADD ON TESTING BLD IN LAB ACKNOWLEDGE
[2017-03-21] MEDS ORDERED: TRAMADOL HCL 50 MG TABLET PO ONE (00:07)
--- NOTE | 2017-03-21 00:09 | ER Document Report ---
ED General - General Chief Complaint: Nausea/Vomiting Stated Complaint: VOMITING Time Seen by Provider: 03/20/17 22:15 Notes: Patient is a 31-year-old female G6 P for a 1 at unknown gestational age, uncertain of her last menstrual period who presents with persistent vomiting over the last 24 hours. Patient reports this feels similar to when she has been in the past. She denies any abdominal pain, diarrhea, vaginal bleeding or discharge. She has been trying [id number] medications without any relief of her nausea and vomiting. She has not seen her primary care doctor regarding today's concerns. Nothing has worsened her symptoms. States she has been able to tolerate sips of water but nothing else. TRAVEL OUTSIDE OF THE [place] IN LAST 30 DAYS: No - Related Data Allergies/Adverse Reactions: No Known Allergies Allergy (Verified 03/05/17 10:14) Past Medical History - General Information source: Patient - Social History Smoking Status: Current Every Day Smoker Chew tobacco use (# tins/day): No Frequency of alcohol use: Social Drug Abuse: None Lives with: Spouse/Significant other Family History: Reviewed & Not Pertinent Patient has suicidal ideation: No Patient has homicidal ideation: No Renal/ Medical History: Denies: Hx Peritoneal Dialysis Psychiatric Medical History: Reports: Hx Depression - Past Surgical History: Reports: Hx Breast Surgery - reduction, Hx Section - x3 Review of Systems - Review of Systems Notes: Constitutional: Negative for fever. HENT: Negative for sore throat. Eyes: Negative for visual changes. Cardiovascular: Negative for chest pain. Respiratory: Negative for shortness of breath. Gastrointestinal: Negative for abdominal pain, positive for vomiting Genitourinary: Negative for dysuria. Musculoskeletal: Negative for back pain. Skin: Negative for rash. Neurological: Negative for headaches, weakness or numbness. 10 point ROS negative except as marked above and in HPI. Physical Exam - Vital signs Vitals: Temp Pulse Resp BP Pulse Ox 98.4 F 105 H 20 137/84 H 100 03/20/17 21:25 03/20/17 21:25 03/20/17 21:25 03/20/17 21:25 03/20/17 21:25 Interpretation: Tachycardic Notes: PHYSICAL EXAMINATION: GENERAL: Well-appearing, well-nourished and in no acute distress. HEAD: Atraumatic, normocephalic. EYES: Pupils equal round and reactive to light, extraocular movements intact, sclera anicteric, conjunctiva are normal. ENT: nares patent, oropharynx clear without exudates. Moist mucous membranes. NECK: Normal range of motion, supple without lymphadenopathy LUNGS: Breath sounds clear to auscultation bilaterally and equal. No wheezes rales or rhonchi. HEART: Regular rate and rhythm without murmurs ABDOMEN: Soft, nontender, normoactive bowel sounds. No guarding, no rebound. No masses appreciated. EXTREMITIES: Normal range of motion, no pitting or edema. No cyanosis. NEUROLOGICAL: No focal neurological deficits. Moves all extremities spontaneously and on command. PSYCH: Normal mood, normal affect. SKIN: Warm, Dry, normal turgor, no rashes or lesions noted. Course - Re-evaluation Re-evalutation: 03/21/17 00:08 Patient presents with persistent vomiting during . Vitals at time of arrival unremarkable without tachycardia or hypotension. Laboratories reveal a normal creatinine and no evidence of significant dehydration. Patient was able to tolerate oral intake here in the emergency department. IV fluids were provided. She denies any abdominal pain to suggest indication for a transvaginal ultrasound. No vaginal bleeding or discharge. Based on abdominal exam, vitals and history I do not suspect an acute appendicitis, cholestasis of , acute cholecystitis, pancreatitis, or bowel obstruction. Patient will be started on a combination of doxylamine and vitamin B6. At this time will discharge with return precautions and follow-up recommendations. Verbal discharge instructions given a the bedside and opportunity for questions given. Medication warnings reviewed. Patient is in agreement with this plan and has verbalized understanding of return precautions and the need for primary care follow-up in the next 24-72 hours. 03/21/17 01:01 Shortly after exiting the patient's room, I was notified by the nurse that she was dissatisfied with my plan to give her tramadol for her nonspecific diffuse musculoskeletal back pain. Patient had reported to me that she felt "sore all over" due to vomiting throughout the day today and would like something to help with her aches and pains and that the Toradol have been provided earlier today today had not been helpful. I did discuss with the patient at length that under no circumstances will I use IV or oral narcotic pain medications for nonspecific diffuse musculoskeletal pain. Patient did relay that she had received narcotic pain medications for musculoskeletal back pain on a recent visit and review of records does confirm that she was given both Percocet and tramadol as well as a muscle relaxer for that back pain. Patient is also noted that the diagnosis of prior heroin abuse is incorrect and should never have been placed in her chart. She states that her baby upon delivery was treated as if it could be narcotic dependent, actually had an arrest and required transfer due to this treatment and that she has retained a sports announcer and is pursuing the case. I informed the patient that I would include this history in my note. Patient has no track ernst on her arms on examination. She does not appear to be under any acute opiate toxicity. However, I have again informed the patient that I will not be giving narcotic pain medications here today and that this is the same care of provide any other patient in that circumstance. Patient was calm, understanding of that perspective after this discussion. I believe much of the patient's agitation regarding my refusal to provide narcotics was due to her perception that I was not administering his medications due to the prior misdiagnosis per her report of heroin abuse. She was amenable to the management I had originally recommended and was discharged without incident. - Vital Signs Vital signs: Temp Pulse Resp BP Pulse Ox 98.4 F 80 18 117/71 99 03/20/17 21:25 03/21/17 01:05 03/21/17 01:05 03/21/17 01:05 03/21/17 01:05 - Laboratory Result Diagrams: 03/20/17 22:20 03/20/17 22:20 Laboratory results interpreted by me: 03/20/17 03/20/17 03/20/17 22:18 22:20 22:20 Hgb 11.5 L Hct 32.9 L RDW 16.7 H Potassium 3.4 L Serum HCG, Qual Beta HCG, Quant Urine Protein 30 H Urine Ketones 20 H Ur Leukocyte Esterase TRACE H 03/20/17 03/20/17 22:20 22:20 Hgb Hct RDW Potassium Serum HCG, Qual POSITIVE H Beta HCG, Quant 059241.00 H Urine Protein Urine Ketones Ur Leukocyte Esterase Discharge - Discharge Clinical Impression: related nausea and vomiting, antepartum Condition: Good Disposition: HOME, SELF-CARE Additional Instructions: You have been seen for vomiting during . You should continue to drink plenty of water and consider taking a solution such as Pedialyte if your having difficulty eating food. Please return if you become unable to drink any fluids for more than 12 hours, urinate less than twice a day, pass out, or have any other symptoms that are concerning to you. For nausea and vomiting during I recomment: Start with 10-12.5 mg of pyridoxine (vitamin B6) three times a day for 2 days. If not fully effective, Increase to 12.5 mg of pyridoxine four times a day for 2 days. If not fully effective, Increase to 25 mg of pyridoxine three times a day for 2 days. If not fully effective, Continue 25 mg pyridoxine 3 times a day, and add 12.5 mg of doxylamine before bedtime each day for 2 days. If not fully effective, Continue 25 mg pyridoxine 3 times a day, and take 12.5 mg of doxylamine twice a day. If not fully effective, Continue 25 mg pyridoxine 3 times a day, and take 12.5 mg of doxylamine three times a day. If not fully effective, Continue 25 mg pyridoxine 3 times a day, and 12.5 mg of doxylamine 3 times a day , while adding Emetrol, one to two tablespoons (15-30 cc) taken once or twice a day as needed. (Emetrol is an aiqo-cfw-tifzcev mixture of sugar syrups and phosphoric acid [phosphorylated carbohydrate solution]) that acts by soothing the actual wall of the gastrointestinal tract). If not fully effective, Consult with your doctor. Prescriptions: Ondansetron [Zofran Odt 4 mg Tablet] 1 - 2 tab PO Q4H PRN #15 tab.rapdis PRN Reason: For Nausea/Vomiting Referrals: PERRI GOFF PA-C [Primary Care Provider] - Follow up as needed
[2017-03-21] MEDS ORDERED: ONDANSETRON ODT 4 MG TAB (6 TAB/DSPK) PO PRN (00:11)
[2017-03-21 01:06] VITALS: BP 117/71
== END 2017-03-21 01:05 | disposition home or self-care (01) ==
LOC: ER 21:09
DX: O21.9 Vomiting of pregnancy, unspecified (principal); O99.89 Other specified diseases and conditions complicating pregnancy, childbirth and the puerperium; M54.9 Dorsalgia, unspecified; O99.330 Smoking (tobacco) complicating pregnancy, unspecified trimester; O26.899 Other specified pregnancy related conditions, unspecified trimester; R00.0 Tachycardia, unspecified; Z3A.00 Weeks of gestation of pregnancy not specified
CPT/HCPCS: 99283; 96361; 96374; 96375; 36415; 84702; 83690; 84703; 85025; 80076; 80048; 81001; J1885; J2405; J7030

== ENCOUNTER 2017-06-03 07:35 | Day surgery (SDC) | payer MEDICAID ==
[2017-06-03] MEDS ORDERED: ACETAMINOPHEN 325 MG TABLET PO ONE (07:47)
--- NOTE | 2017-06-03 08:03 | ER Document Report ---
ED General - General Stated Complaint: VAGINAL BLEEDING Time Seen by Provider: 06/03/17 07:45 TRAVEL OUTSIDE OF THE [place] IN LAST 30 DAYS: No - HPI Patient complains to provider of: Vaginal bleeding passage of material Notes: Patient coming in states that she is a with twins at home from when gestation coming in for vaginal bleeding patient states sure having abdominal cramping went and sat in the bathtub past material continues to have vaginal bleeding notified EMS. Patient denies any other complaints at this time other than abdominal cramping. Denies any trauma patient states that she has not received any care for this . Patient is in no obvious distress upon my evaluation denies fevers chills nausea vomiting patient states that she is O+. EMS did obtain material patient does have approximately 6 cm fetus that was collected from the bathtub. - Related Data Allergies/Adverse Reactions: No Known Allergies Allergy (Verified 03/05/17 10:14) Home Medications: Current Home Medications No Home Medications 06/03/17 [History] Past Medical History - Social History Smoking Status: Unknown if Ever Smoked Family History: Reviewed & Not Pertinent Renal/ Medical History: Denies: Hx Peritoneal Dialysis Psychiatric Medical History: Reports: Hx Depression - Past Surgical History: Reports: Hx Breast Surgery - reduction, Hx Section - x3 Review of Systems - Review of Systems Constitutional: No symptoms reported EENT: No symptoms reported Cardiovascular: No symptoms reported Respiratory: No symptoms reported Gastrointestinal: No symptoms reported Genitourinary: No symptoms reported Female Genitourinary: No symptoms reported Musculoskeletal: No symptoms reported Skin: No symptoms reported Hematologic/Lymphatic: No symptoms reported Neurological/Psychological: No symptoms reported -: Yes All other systems reviewed and negative Physical Exam - Vital signs Vitals: Temp Pulse Resp BP Pulse Ox 98.7 F 71 18 114/72 99 06/03/17 08:08 06/03/17 08:08 06/03/17 08:08 06/03/17 08:08 06/03/17 08:08 Interpretation: Normal - General General appearance: Appears well, Alert - HEENT Head: Normocephalic, Atraumatic Eyes: Normal Pupils: PERRL - Respiratory Respiratory status: No respiratory distress Chest status: Nontender Breath sounds: Normal Chest palpation: Normal - Cardiovascular Rhythm: Regular Heart sounds: Normal auscultation Murmur: No - Abdominal Inspection: Normal Distension: No distension Bowel sounds: Normal Tenderness: Nontender Organomegaly: No organomegaly - Back Back: Normal, Nontender - Extremities General upper extremity: Normal inspection, Nontender, Normal color, Normal ROM , Normal temperature General lower extremity: Normal inspection, Nontender, Normal color, Normal ROM , Normal temperature, Normal weight bearing. No: Melissa's sign - Neurological Neuro grossly intact: Yes Cognition: Normal Orientation: AAOx4 [place] Coma Scale Eye Opening: Spontaneous [place] Coma Scale Verbal: Oriented [place] Coma Scale Motor: Obeys Commands [place] Coma Scale Total: 15 Speech: Normal Motor strength normal: LUE, RUE, LLE, RLE Sensory: Normal - Psychological Associated symptoms: Normal affect, Normal mood - Skin Skin Temperature: Warm Skin Moisture: Dry Skin Color: Normal Course - Re-evaluation Re-evalutation: 06/03/17 08:03 We will obtain basic lab work Rh status as well as that we do not have one documented here in the hospital obtain ultrasound 06/03/17 14:13 METABOLIC SPECIALIST recommends D&C will admit to their service - Vital Signs Vital signs: Temp Pulse Resp BP Pulse Ox 97.4 F 70 16 118/70 100 06/03/17 13:20 06/03/17 13:20 06/03/17 13:20 06/03/17 13:20 06/03/17 13:20 - Laboratory Result Diagrams: 06/03/17 08:05 06/03/17 08:30 Laboratory results interpreted by me: 06/03/17 06/03/17 08:05 08:30 Hct 35.8 L RDW 16.2 H Plt Count 103 L Chloride 108 H Beta HCG, Quant 114.48 H Discharge - Discharge Clinical Impression: Miscarriage, Retained products of conception Condition: Good Disposition: ADMITTED OBSERVATION Admitting Provider: [facility] Unit Admitted: OR
[2017-06-03 08:23] LABS: ABSOLUTE EOSINOPHILS # (AUTO) 0.1 10^3/uL (0.0-0.6); ABSOLUTE MONOCYTES (AUTO) 0.4 10^3/uL (0.1-1.4); ABSOLUTE NEUT (AUTO) 4.9 10^3/uL (1.7-8.2); BASOPHILS % (AUTO) 0.6 % (0-2); EOSINOPHILS % (AUTO) 1.1 % (0-6); HEMATOCRIT 35.8 % (36.0-47.0); HEMOGLOBIN 12.9 g/dL (12.0-15.5); HGB HCT DIFFERENCE 2.9; LYMPHOCYTES % (AUTO) 16.1 % (13-45); MEAN CORPUSCULAR HEMOGLOBIN 32.2 pg (27.0-33.4); MEAN CORPUSCULAR VOLUME 89 fl (80-97); MONOCYTES % (AUTO) 5.7 % (3-13); RED CELL DISTRIBUTION WIDTH 16.2 % (11.5-14.0); SEGMENTED NEUTROPHILS % (AUTO) 76.5 % (42-78); WHITE BLOOD COUNT 6.4 10^3/uL (4.0-10.5)
[2017-06-03 08:26] LABS: PROTHROMBIN TIME 13.7 SEC (11.4-15.4)
[2017-06-03 09:00] LABS: URINE BARBITURATES SCREEN NEGATIVE; URINE METHADONE SCREEN UNCONFIRMED POSITIVE; URINE OPIATES LOW NEGATIVE; URINE PHENCYCLIDINE SCREEN NEGATIVE
[2017-06-03 09:03] LABS: ANION GAP 6 (5-19); BLOOD UREA NITROGEN 9 mg/dL (7-20); CALCIUM 9.3 mg/dL (8.4-10.2); CARBON DIOXIDE 26 mmol/L (22-30); CHLORIDE 108 mmol/L (98-107); CREATININE RESULT 0.61 mg/dL (0.52-1.25); GLUCOSE 104 mg/dL (75-110); SODIUM 140.3 mmol/L (137-145)
--- NOTE | 2017-06-03 09:55 | RADIOLOGY REPORT (SQ) ---
EXAM DESCRIPTION: U/S NON-OB PELVIS W/O DOP COMPLETED DATE/TIME: 06/03/2017 9:21 am REASON FOR STUDY: vaginal bleeding eval retain products COMPARISON: None. TECHNIQUE: Dynamic and static grayscale images acquired of the pelvis via transabdominal approach an d recorded on PACS. Additional selected color Doppler and spectral images recorded. LIMITATIONS: None. FINDINGS: UTERUS: Post spontaneous . There is a fluid pocket in the fundal endometrial matt l measuring about 2.5 cm in diameter, with circumferential rind of thickened echogenic trophoblasti/p lacental tissue, measuring about 1.5 cm in greatest thickness. This is worrisome for retained gestat ional products. No fetus identified. CERVIX: 2.7 cm in length RIGHT OVARY: Not visualized LEFT OVARY: Not visualized FREE FLUID: None noted. OTHER: No other significant finding. IMPRESSION: Post spontaneous with endometrial canal fundal fluid, and rind of echogenic tro phoblastic/placental tissue from retained products of conception TECHNICAL DOCUMENTATION: JOB ID: [id number] [employer]- All Rights Reserved
[2017-06-03] MEDS ORDERED: RINGERS SOLUTION,LACTATED 1,000 ML IV ONE (10:50)
[2017-06-03] MEDS ORDERED: DOXYCYCLINE HYCLATE INJ 100 MG VIAL IV ONE (10:51)
[2017-06-03] MEDS ORDERED: PROPOFOL INJ 200 MG/20 ML VIAL IV ONE (11:01)
[2017-06-03] MEDS ORDERED: IBUPROFEN INJ 800 MG/8 ML VIAL IV ONE (11:01)
[2017-06-03] MEDS ORDERED: MIDAZOLAM 2 MG/2 ML INJ ONE (11:01)
[2017-06-03] MEDS ORDERED: FENTANYL CITRATE INJ/PF 100 MCG/2 ML AMPUL ONE (11:01)
[2017-06-03] MEDS ORDERED: DEXAMETHASONE SOD PHOSPHATE INJ 4 MG/1 ML VIAL ONE (11:02)
[2017-06-03] MEDS ORDERED: ONDANSETRON HCL INJ/PF 4 MG/2 ML SDV ONE (11:02)
[2017-06-03] MEDS ORDERED: MISOPROSTOL 0.2 MG TABLET ONE (12:08)
[2017-06-03] MEDS ORDERED: FENTANYL CITRATE INJ/PF 100 MCG/2 ML AMPUL IV PRN ×3 (12:32)
[2017-06-03] MEDS ORDERED: MORPHINE SULFATE 10 MG/ML INJ IV PRN (12:32)
[2017-06-03] MEDS ORDERED: PROMETHAZINE HCL INJ 25 MG/1 ML VIAL IV PRN (12:32)
[2017-06-03] MEDS ORDERED: DIPHENHYDRAMINE HCL 50 MG/ML VIAL IV PRN (12:32)
[2017-06-03] MEDS ORDERED: MEPERIDINE HCL/PF INJ 25 MG/1 ML DISP.SYRIN IV PRN (12:32)
[2017-06-03] MEDS: MORPHINE SULFATE 10 MG/ML INJ ONE ×2 (12:32→12:45)
--- NOTE | 2017-06-03 12:52 | OPERATIVE REPORT E ---
Operative Report NAME: CAMERON SCHULTE : 1985 AGE: 32Y DATE OF SURGERY: 06/03/2017 ROOM: ED16 PREOPERATIVE DIAGNOSIS: Retained products of conception. POSTOPERATIVE DIAGNOSIS: Retained products of conception. PROCEDURE: Suction dilation and curettage. SURGEON: YENNY ERVIN M.D. ANESTHESIA: Dr. Mcknight with general. FINDINGS: A 14-week sized uterus with products of conception extruding from the cervical os at the beginning of the procedure and copious products of conception obtained during the procedure. Good hemostasis at the end after Cytotec placement. ESTIMATED BLOOD LOSS: 150 mL. SPECIMENS REMOVED: Products of conception. PROCEDURE IN DETAIL: The patient was taken to the operating room, prepared and draped in a normal sterile fashion in a dorsal lithotomy position. Under sterile conditions, an in-and-out cath was performed with approximately 300 mL of clear urine. The sterile speculum was placed in the vagina with the above findings noted of a moderate of products extruding from the os at the beginning of the procedure. These products were removed with ring forceps. The anterior lip of the cervix was grasped with a single tooth tenaculum. The uterus was sounded through the above findings. An 8 mm suction curette was then placed and the suction curettage was performed gently with copious amounts of products obtained. A sharp curettage was then performed with good grit felt and 360 degrees. At the conclusion, there was still a moderate amount of oozing from the cervical os. I did probe with the uterine sound in 360 degree direction to ensure that there was no perforation and I met resistance in all directions. A 1000 mcg of Cytotec were placed per rectum and we did get slowing of bleeding once this was placed. Instruments were then removed. Speculum was removed and patient was taken down from dorsal lithotomy position and taken to recovery in stable condition. Sponge, lap and needle counts were correct x2. DICTATING PHYSICIAN: YENNY ERVIN M.D. [id number] PHY#: [id number] ID: [id number] JOB#: [id number] ACCT: [id number] cc:YENNY ERVIN M.D. >
[2017-06-03] MEDS ORDERED: IBUPROFEN 800 MG TABLET PO PRN (13:12)
[2017-06-03] MEDS ORDERED: OXYCODONE-ACETAMINOPHEN 5-325 MG TABLET PO PRN (13:12)
[2017-06-03 17:36] VITALS: BP 114/45
== END 2017-06-03 14:45 | disposition home or self-care (01) ==
LOC: ER 07:35 → EH 11:09 → ER 11:09 → OROUT 11:09 → UNDOADMIN 11:09 → EH 13:47 → INOR 13:47 → OROUT 14:45 → UNDODISIN 14:45
PROVIDERS: ATTEND Obstetrics & Gynecology
PROC: 10D17ZZ Extraction of Products of Conception, Retained, Via Natural or Artificial Opening (ICD-10-PCS; principal; 2017-06-03 12:00)
DX: O03.9 Complete or unspecified spontaneous abortion without complication (principal)
CPT/HCPCS: 36415; 76856; 80048; 80307; 84702; 85025; 85610; 86900; 86901; 87040; 88305; 96365; 96375; 99285; J1100; J1741; J2250; J2270; J2405; J2704; J3010; J3490; J7120

== ENCOUNTER 2018-01-12 19:25 | Emergency (ER) | payer SELFPAY ==
[2018-01-12 19:56] VITALS: BP 125/88
[2018-01-12] MEDS ORDERED: CLINDAMYCIN HCL 150 MG CAPSULE PO ONE (21:38)
[2018-01-12] MEDS ORDERED: LIDOCAINE 1% INJ-PF (10 MG/ML) 30 ML SDV INJ ONE (21:38)
[2018-01-12] MEDS ORDERED: KETOROLAC TROMETHAMINE INJ/PF 30 MG/1 ML SDV IM ONE (21:39)
--- NOTE | 2018-01-12 22:09 | RADIOLOGY REPORT (SQ) ---
EXAM DESCRIPTION: WRIST LEFT 3 VIEWS COMPLETED DATE/TIME: 01/12/2018 8:52 pm REASON FOR STUDY: pain, swelling COMPARISON: None. NUMBER OF VIEWS: Three views. TECHNIQUE: AP, lateral, and oblique radiographic images acquired of the left wrist. LIMITATIONS: None. FINDINGS: MINERALIZATION: Normal. BONES: No acute fracture or dislocation. No worrisome bone lesions. Normal alignment. SOFT TISSUES: There is diffuse soft tissue swelling, more pronounced adjacent to the distal radius. No radiopaque foreign body. IMPRESSION: Soft tissue swelling. No radiographic evidence for acute fracture. TECHNICAL DOCUMENTATION: JOB ID: [id number] [employer]- All Rights Reserved Reading location - IP/workstation name: [email or web address]
--- NOTE | 2018-01-12 22:10 | ER Document Report ---
ED Hand/Wrist Injury - General Chief Complaint: Abscess Stated Complaint: LT WRIST SWELLING Time Seen by Provider: 01/12/18 20:39 Mode of Arrival: Ambulatory Information source: Patient TRAVEL OUTSIDE OF THE [place] IN LAST 30 DAYS: No - HPI Patient complains to provider of: left wrist pain and swelling Injury to: Wrist Notes: Patient is here with complaints of left wrist pain redness and swelling. She states that she noticed some bug bites to her left wrist a few days ago and was scratching them and then has developed redness, swelling, pain alf up her forearm and on the dorsum of her hand. She denies any traumatic injury. She denies any fever. She denies any IV drug use. She states that she took someone 's Percocet a few days ago due to pain but denies any other opiates. She denies any nausea, vomiting, diarrhea. No chest pain or shortness of breath. No rash. Pain is worse with touching the area as well as movement of the wrist. Nothing makes it better. She denies any numbness or tingling. No other complaints at this time. - Related Data Allergies/Adverse Reactions: No Known Allergies Allergy (Verified 07/03/17 12:14) Past Medical History - Social History Smoking Status: Current Every Day Smoker Chew tobacco use (# tins/day): No Frequency of alcohol use: Occasional Drug Abuse: Marijuana Family History: Reviewed & Not Pertinent Patient has suicidal ideation: No Patient has homicidal ideation: No Renal/ Medical History: Denies: Hx Peritoneal Dialysis Psychiatric Medical History: Reports: Hx Depression - Past Surgical History: Reports: Hx Breast Surgery - reduction, Hx Section - x3 Review of Systems - Review of Systems -: Yes All other systems reviewed and negative Physical Exam - Vital signs Vitals: Temp Pulse Resp BP Pulse Ox 99.3 F 107 H 16 125/88 H 100 01/12/18 19:54 01/12/18 19:54 01/12/18 19:54 01/12/18 19:54 01/12/18 19:54 - Notes Notes: GENERAL: alert, cooperative, nontoxic, no distress. HEAD: normocephalic, atraumatic EYES: conjunctiva pink without discharge, no external redness or swelling. EARS: no external swelling, no external redness NOSE: atraumatic, no external swelling MOUTH/THROAT: mucous membranes moist and pink NECK: soft, supple, full range of motion, no meningismus. CHEST: no distress, lungs clear and equal throughout. No wheezing, rales, rhonchi. CARDIAC: regular rate and rhythm, no murmur, normal capillary refill, normal pulses. BACK: full range of motion, no CVA tenderness. EXTREMITIES: Patient noted to have an abscess to the radial aspect of the left wrist with redness from the dorsum of the hand at the MCP joint up to the mid forearm. Tenderness to palpation. Compartments are soft. Normal pulse and sensation distally. Tenderness with movement of the left wrist. NEURO: alert and oriented 3, no focal deficits, full range of motion of all extremities. PYSCH: appropriate mood, affect. Patient is cooperative. SKIN: pink, warm, dry, no rash. Course - Re-evaluation Re-evalutation: 01/12/18 23:29 Patient is nontoxic appearing with stable vitals. Is here with complaints of left wrist pain, redness, swelling. Patient denies any IV drug use. She is noted to have a large abscess to the left wrist with cellulitis to the MCP joints and mid forearm. There is no circumferential cellulitis. Compartments are soft. Normal pulse and sensation distally. I offered to start an IV, check blood work, give her IV antibiotics and admit the patient to the hospital after an I&D. She declined to have that done. She states that she would prefer to just have the abscess drained and get antibiotics and follow-up tomorrow. At this point since she is nontoxic-appearing, believe that this could be a reasonable option, as long as she returns tomorrow for recheck. I was able to drain a large amount of purulent drainage from the left wrist abscess. She was given clindamycin in the emergency department. A culture was obtained and sent to the lab. Her drug screen is noted to be positive for opiates. The patient denies any IV drug use, but this wound is certainly concerning for such especially with the positive drug screen. Patient also has a prior history. At this point patient will be discharged home with clindamycin , Voltaren, instructions to apply warm compresses to the area. Redness was marked with a skin marker. She is instructed to return tomorrow for reevaluation of this wound. She is instructed to return sooner if she develops increased pain, fever, numbness, tingling, weakness, worsening redness, or has any further concerns. The patient is noted to have elevated blood pressure during today's emergency department visit. The patient was informed of this finding. The patient was instructed that this may be related to pre-hypertension and requires further evaluation with a primary care provider. The patient has no hypertensive symptoms at this time. The patient's emergency department workup and current diagnosis were explained to the patient and or family. Follow-up instructions were provided. Medications if prescribed were discussed. Instructions for when to return to the emergency department including specific worrisome symptoms were discussed with the patient and/or family. - Vital Signs Vital signs: Temp Pulse Resp BP Pulse Ox 99.3 F 107 H 16 125/88 H 100 01/12/18 19:54 01/12/18 19:54 01/12/18 19:54 01/12/18 19:54 01/12/18 19:54 - Diagnostic Test Radiology reviewed: Image reviewed, Reports reviewed - Left wrist negative Discharge - Discharge Clinical Impression: Abscess or cellulitis of wrist Condition: Stable Disposition: HOME, SELF-CARE Instructions: Abscess ([facility]), Post Incision and Drainage Additional Instructions: Take medications as prescribed. Apply warm compresses to sore area. Return tomorrow for recheck of wound. Return sooner for worsening pain, fever, numbness, tingling, weakness, redness, any further concerns. Your blood pressure was elevated during today's visit. Have this rechecked with your doctor. Prescriptions: Clindamycin HCl 300 mg PO QID #40 capsule Diclofenac Sodium [Voltaren 50 Mg Tablet.] 50 mg PO BID #20 tablet. Forms: Elevated Blood Pressure, Smoking Cessation Education Referrals: PERRI GOFF PA-C [Primary Care Provider] - Follow up as needed
[2018-01-12 22:37] LABS: URINE AMPHETAMINES SCREEN NEGATIVE; URINE BARBITURATES SCREEN NEGATIVE; URINE BENZODIAZEPINES SCREEN NEGATIVE; URINE COCAINE SCREEN NEGATIVE; URINE MARIJUANA (THC) SCREEN UNCONFIRMED POSITIVE; URINE METHADONE SCREEN NEGATIVE; URINE PHENCYCLIDINE SCREEN NEGATIVE
== END 2018-01-12 23:56 | disposition home or self-care (01) ==
LOC: ER 19:25
PROC: 0H9EXZZ Drainage of Left Lower Arm Skin, External Approach (ICD-10-PCS; principal; 2018-01-12)
DX: L02.414 Cutaneous abscess of left upper limb (principal); F17.200 Nicotine dependence, unspecified, uncomplicated
CPT/HCPCS: 99283; 96372; 87070; 87205; 81025; 87077; 80307; 73110; 10060; J3490; J1885

== ENCOUNTER 2018-02-24 13:31 | Inpatient (IN) | payer SELFPAY ==
[2018-02-24] MEDS ORDERED: VANCOMYCIN HCL INJ 1000 MG VIAL IV ONE (14:32)
--- NOTE | 2018-02-24 14:35 | ER Document Report ---
ED Medical Screen (RME) - General Chief Complaint: Abscess Stated Complaint: POSSIBLE ABSCESS Time Seen by Provider: 02/24/18 14:21 Notes: RAPID MEDICAL EVALUATION DISCLOSURE I have seen this patient as part of a Rapid Medical Evaluation and, if applicable, placed any initially appropriate orders. The patient will be seen and fully evaluated, including a full history and physical exam, by a provider ( in Main ED or Fast Track) when a room becomes available. 32-year-old female PMH IV drug use here with complaints of multiple abscesses over the past 1 week. Approximately 1 week ago, she attempted to inject some heroin into her left antecubital fossa "but I missed". Since then she has started to have progressively worsening increase in pain redness and swelling of her left arm. She has also had a left wrist abscess and right foot abscess pop up over this time. EXAM Markedly increased size of LUE versus RUE with some induration Small superficial abscess to the left wrist and right foot TRAVEL OUTSIDE OF THE [place] IN LAST 30 DAYS: No - Related Data Allergies/Adverse Reactions: No Known Allergies Allergy (Verified 02/24/18 13:34) Past Medical History Renal/ Medical History: Denies: Hx Peritoneal Dialysis Psychiatric Medical History: Reports: Hx Depression - Past Surgical History: Reports: Hx Breast Surgery - reduction, Hx Section - x3 Physical Exam - Vital signs Vitals: Temp Pulse Resp BP Pulse Ox 98.2 F 97 15 119/79 99 02/24/18 13:43 02/24/18 13:43 02/24/18 13:43 02/24/18 13:43 02/24/18 13:43 Course - Vital Signs Vital signs: Temp Pulse Resp BP Pulse Ox 98.2 F 97 15 119/79 99 02/24/18 13:43 02/24/18 13:43 02/24/18 13:43 02/24/18 13:43 02/24/18 13:43 Doctor's Discharge - Discharge Referrals: PERRI GOFF PA-C [Primary Care Provider] - Follow up as needed
[2018-02-24 15:02] LABS: HEMATOCRIT 40.7 % (36.0-47.0); HEMOGLOBIN 13.8 g/dL (12.0-15.5); MEAN CORPUSCULAR HEMOGLOBIN 28.2 pg (27.0-33.4); MEAN CORPUSCULAR VOLUME 83 fl (80-97); PLATELET COUNT 229 10^3/uL (150-450); RED BLOOD COUNT 4.91 10^6/uL (3.72-5.28); RED CELL DISTRIBUTION WIDTH 17.2 % (11.5-14.0); WHITE BLOOD COUNT 18.7 10^3/uL (4.0-10.5)
--- NOTE | 2018-02-24 15:12 | RADIOLOGY REPORT (SQ) ---
EXAM DESCRIPTION: HUMERUS LEFT COMPLETED DATE/TIME: 02/24/2018 3:01 pm REASON FOR STUDY: L arm abscess; eval gas COMPARISON: None. NUMBER OF VIEWS: Two views. TECHNIQUE: Two radiographic images were acquired of the left humerus to include elbow and shoulder i n at least one projection. LIMITATIONS: None. FINDINGS: MINERALIZATION: Normal. BONES: No acute fracture or dislocation. No worrisome bone lesions. SOFT TISSUES: No obvious swelling or foreign body. OTHER: No other significant finding. IMPRESSION: NEGATIVE STUDY OF THE LEFT HUMERUS. NO RADIOGRAPHIC EVIDENCE OF ACUTE INJURY. TECHNICAL DOCUMENTATION: JOB ID: [id number] [employer]- All Rights Reserved Reading location - IP/workstation name: [email or web address]
[2018-02-24 15:19] LABS: ALANINE AMINOTRANSFERASE 33 U/L (9-52); ALBUMIN 4.2 g/dL (3.5-5.0); ALKALINE PHOSPHATASE 178 U/L (38-126); ANION GAP 13 (5-19); ASPARTATE AMINO TRANSFERASE 48 U/L (14-36); BILIRUBIN,DIRECT 0.4 mg/dL (0.0-0.4); BILIRUBIN,TOTAL 0.9 mg/dL (0.2-1.3); BLOOD UREA NITROGEN 13 mg/dL (7-20); CALCIUM 9.3 mg/dL (8.4-10.2); CARBON DIOXIDE 31 mmol/L (22-30); CHLORIDE 97 mmol/L (98-107); GLUCOSE 116 mg/dL (75-110); POTASSIUM 3.2 mmol/L (3.6-5.0); SODIUM 141.4 mmol/L (137-145)
[2018-02-24 15:21] LABS: ABSOLUTE LYMPHOCYTES# (MANUAL) 2.1 10^3/uL (0.5-4.7); ABSOLUTE NEUTROPHILS# (MANUAL) 16.5 10^3/uL (1.7-8.2); ANISOCYTOSIS 2+; BAND NEUTROPHILS % (MANUAL) 1 % (3-5); BASOPHILS % (MANUAL) 0 % (0-2); EOSINOPHILS % (MANUAL) 1 % (0-6); LYMPHOCYTES % (MANUAL) 11 % (13-45); MONOCYTES % (MANUAL) 0 % (3-13); PLATELET COMMENT ADEQUATE; SEGMENTED NEUTROPHILS % (MAN) 87 % (42-78); TOTAL CELLS COUNTED 100; TOXIC GRANULATION SLIGHT; TOXIC VACUOLATION PRESENT
[2018-02-24] MEDS ORDERED: KETOROLAC TROMETHAMINE INJ/PF 30 MG/1 ML SDV IV ONE (16:07)
--- NOTE | 2018-02-24 17:33 | ER Document Report ---
ED Skin Rash/Insect Bite/Abscs - General Chief Complaint: Abscess Stated Complaint: POSSIBLE ABSCESS Time Seen by Provider: 02/24/18 14:21 Mode of Arrival: Ambulatory Information source: Patient Notes: 32-year-old heroin IV drug user with left antecubital abscess medial and lateral space for 1-2 weeks, then this friday got abscess dorsum of right foot and dorsal left hand -denies injecting in these areas. 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 [facility] admission 2 years ago for a month and ended up having to have amphotericin given because she had antecubital space infections bilateral. She has had fever, chills and sweats. When I walked in the room she was vomiting. No heroin injection for 4 days. TRAVEL OUTSIDE OF THE [place] IN LAST 30 DAYS: No - Related Data Allergies/Adverse Reactions: No Known Allergies Allergy (Verified 02/24/18 13:34) Past Medical History - General Information source: Patient - Social History Smoking Status: Current Every Day Smoker Chew tobacco use (# tins/day): No Frequency of alcohol use: Occasional Drug Abuse: Heroin, Marijuana Lives with: Spouse/Significant other Family History: Reviewed & Not Pertinent Patient has suicidal ideation: No Patient has homicidal ideation: No Renal/ Medical History: Denies: Hx Peritoneal Dialysis Skin Medical History: Reports Other - abscess Psychiatric Medical History: Reports: Hx Depression - Past Surgical History: Reports: Hx Breast Surgery - reduction, Hx Section - x3 Review of Systems - Review of Systems Constitutional: See HPI EENT: No symptoms reported Cardiovascular: No symptoms reported Respiratory: No symptoms reported Gastrointestinal: No symptoms reported Genitourinary: No symptoms reported Female Genitourinary: No symptoms reported Musculoskeletal: No symptoms reported Skin: See HPI Hematologic/Lymphatic: No symptoms reported Neurological/Psychological: No symptoms reported Physical Exam - Vital signs Vitals: Temp Pulse Resp BP Pulse Ox 98.2 F 97 15 119/79 99 02/24/18 13:43 02/24/18 13:43 02/24/18 13:43 02/24/18 13:43 02/24/18 13:43 Interpretation: Normal - General General appearance: Alert, Other - pale - HEENT Head: Normocephalic, Atraumatic Eyes: Normal Conjunctiva: Normal Pupils: PERRL Mucous membranes: Dry Pharynx: Normal Neck: Supple. No: Lymphadenopathy - Respiratory Respiratory status: No respiratory distress Chest status: Nontender Breath sounds: Normal Chest palpation: Normal - Cardiovascular Rhythm: Regular Heart sounds: Normal auscultation Murmur: No - Abdominal Inspection: Normal Distension: No distension Bowel sounds: Normal Tenderness: Nontender. No: Tender Organomegaly: No organomegaly - Back Back: Normal, Nontender - Extremities General upper extremity: Normal inspection, Nontender, Normal color, Normal ROM , Normal temperature General lower extremity: Normal inspection, Nontender, Normal color, Normal ROM , Normal temperature, Normal weight bearing. No: Melissa's sign Elbow: Tender, Other - swelling (not circumferential) with induration medial and lateral in the pleural space with cellulitis above and below those areas. She also has a fluctuant abscess dorsal of left hand that is 2 cm and similar 2 cm abscess on the dorsum of the right foot. - Neurological Neuro grossly intact: Yes Cognition: Normal Orientation: AAOx4 Maurilio Coma Scale Eye Opening: Spontaneous Maurilio Coma Scale Verbal: Oriented Maurilio Coma Scale Motor: Obeys Commands Maurilio Coma Scale Total: 15 Speech: Normal Motor strength normal: LUE, RUE, LLE, RLE Sensory: Normal - Psychological Associated symptoms: Normal affect, Normal mood - Skin Skin Temperature: Warm Skin Moisture: Dry Skin Color: Normal Course - Re-evaluation Re-evalutation: 02/24/18 17:[address] Leach to come see the patient and see if he would do the abscess I&D's and I will call the hospitalist for admission. 02/24/18 18:54 dr su is admitting the pt . He withdrew pus from the dorsum right foot for culture. - Vital Signs Vital signs: Temp Pulse Resp BP Pulse Ox 98.2 F 97 15 119/79 99 02/24/18 13:43 02/24/18 13:43 02/24/18 13:43 02/24/18 13:43 02/24/18 13:43 - Laboratory Result Diagrams: 02/24/18 14:50 02/24/18 14:50 Laboratory results interpreted by me: 02/24/18 02/24/18 14:50 14:50 WBC 18.7 H RDW 17.2 H Seg Neuts % (Manual) 87 H Band Neutrophils % 1 L Lymphocytes % (Manual) 11 L Monocytes % (Manual) 0 L Abs Neuts (Manual) 16.5 H Abs Monocytes (Manual) 0.0 L Potassium 3.2 L Chloride 97 L Carbon Dioxide 31 H Est GFR (Non-Af Amer) 52 L Glucose 116 H AST 48 H Alkaline Phosphatase 178 H Discharge - Discharge Clinical Impression: Abscess of multiple sites, IV heroin user Condition: Stable Disposition: ADMITTED INPATIENT Admitting Provider: Hospitalist Unit Admitted: Surgical Floor
[2018-02-24] MEDS ORDERED: MORPHINE SULFATE 10 MG/ML INJ IV ONE (17:42)
[2018-02-24] MEDS ORDERED: ONDANSETRON 4 MG TAB.RAPDIS PO ONE (17:42)
[2018-02-24] MEDS ORDERED: CEFTRIAXONE 1 GM/D5W RTU 1 GM/50 ML RTUPB IV ONE (17:46)
[2018-02-24] MEDS ORDERED: NORMAL SALINE 1000 ML 1,000 ML IV ONE (17:54)
[2018-02-24] MEDS ORDERED: ONDANSETRON HCL INJ/PF 4 MG/2 ML SDV IV PRN ×2 (18:19→21:18)
[2018-02-24] MEDS ORDERED: FENTANYL CITRATE INJ/PF 100 MCG/2 ML AMPUL ONE (18:28)
[2018-02-24] MEDS ORDERED: MIDAZOLAM 2 MG/2 ML INJ ONE (18:28)
[2018-02-24] MEDS ORDERED: EPHEDRINE SULFATE INJ 50 MG/1 ML AMPULE ONE (18:28)
[2018-02-24] MEDS ORDERED: PROPOFOL INJ 200 MG/20 ML VIAL IV ONE (18:29)
[2018-02-24] MEDS ORDERED: MORPHINE SULFATE 10 MG/ML INJ ONE (18:29)
[2018-02-24] MEDS ORDERED: VANCOMYCIN HCL 0 MG in DEXTROSE 5%-WATER 250 ML IV NR (18:30)
--- NOTE | 2018-02-24 18:34 | PDOC H&P ---
History of Present Illness Admission Date/PCP: PERRI GOFF PA-C Patient complains of: pains left cubital area History of Present Illness: CAMERON SCHULTE is a 32 year old female who injected heroin on her left cubital area about 2 weeks ago. This was noted to have a painful swelling past week. She is not able to straighten her left arm because of severe pains. Also noted painful swelling right foot. Denies injecting this area. Denies trauma. Past Medical History Psychiatric Medical History: Reports: Depression - Past Surgical History Past Surgical History: Reports: Section - x3 Social History Smoking Status: Current Every Day Smoker Family History Family History: Reviewed & Not Pertinent Parental Family History Reviewed: Yes Children Family History Reviewed: No Sibling(s) Family History Reviewed.: No Medication/Allergy Home Medications: No Home Medications 02/24/18 Allergies/Adverse Reactions: No Known Allergies Allergy (Verified 02/24/18 13:34) Physical Exam Vital Signs: Temp Pulse Resp BP Pulse Ox 98.2 F 97 15 119/79 99 02/24/18 13:43 02/24/18 13:43 02/24/18 13:43 02/24/18 13:43 02/24/18 13:43 Intake & Output 02/23/18 02/24/18 02/25/18 06:59 06:59 06:59 Weight 57.5 kg Results Laboratory Results: 02/24/18 14:50 02/24/18 14:50 02/24/18 02/24/18 14:50 14:50 WBC 18.7 H RBC 4.91 Hgb 13.8 Hct 40.7 MCV 83 MCH 28.2 MCHC 34.0 RDW 17.2 H Plt Count 229 Seg Neutrophils % Not Reportable Lymphocytes % Not Reportable Monocytes % Not Reportable Eosinophils % Not Reportable Basophils % Not Reportable Absolute Neutrophils Not Reportable Absolute Lymphocytes Not Reportable Absolute Monocytes Not Reportable Absolute Eosinophils Not Reportable Absolute Basophils Not Reportable Sodium 141.4 Potassium 3.2 L Chloride 97 L Carbon Dioxide 31 H Anion Gap 13 BUN 13 Creatinine 1.18 Est GFR ( Amer) > 60 Est GFR (Non-Af Amer) 52 L Glucose 116 H Calcium 9.3 Total Bilirubin 0.9 AST 48 H ALT 33 Alkaline Phosphatase 178 H Total Protein 8.0 Albumin 4.2 Impressions: Humerus X-Ray 02/24/18 14:33 IMPRESSION: NEGATIVE STUDY OF THE LEFT HUMERUS. NO RADIOGRAPHIC EVIDENCE OF ACUTE INJURY. Assessment & Plan - Diagnosis (1) Abscess left cubital area Is this a current diagnosis for this admission?: Yes (2) abscess dorsum right foot Is this a current diagnosis for this admission?: Yes - Time Time Spent: 30 to 50 Minutes - Plan Summary Plan Summary: IV antibiotics For I&D left cubital area and dorsum right foot
[2018-02-24] MEDS ORDERED: LIDOCAINE 0.5% INJ-PF (5 MG/ML) 50 ML SDV ONE (18:47)
--- NOTE | 2018-02-24 18:51 | PDOC H&P ---
History of Present Illness Admission Date/PCP: PERRI GOFF PA-C History of Present Illness: CAMERON SCHULTE is a 32 year old female patient known IV drug abuser resents with chief complaint of chills, fever and left arm swelling. Patient claims she has not used heroin for the last 4 days. She has tender swollen left upper arm with some fluctuation and induration for which Dr. Gaytan was consulted and will take her to OR for incision and drainage. She has also a small abscess on the dorsum of her right foot which aspirated and send the specimen for culture. She denies any nausea, vomiting abdominal pain or any change in her bowel habits. No urinary complaints. No shortness of breath, dizziness, palpitation, chest pain or cough. Past Medical History Psychiatric Medical History: Reports: Depression - Past Surgical History Past Surgical History: Reports: Section - x3 Social History Smoking Status: Current Every Day Smoker - Advance Directive Resuscitation Status: Full Code Family History Family History: Reviewed & Not Pertinent, Hypertension Parental Family History Reviewed: Yes Children Family History Reviewed: Yes Sibling(s) Family History Reviewed.: Yes Medication/Allergy Home Medications: No Home Medications 02/24/18 Allergies/Adverse Reactions: No Known Allergies Allergy (Verified 02/24/18 13:34) Review of Systems Constitutional: PRESENT: as per HPI Eyes: PRESENT: as per HPI Cardiovascular: PRESENT: as per HPI Respiratory: PRESENT: as per HPI Gastrointestinal: PRESENT: as per HPI Neurological: PRESENT: as per HPI Psychiatric: PRESENT: as per HPI Physical Exam Vital Signs: Temp Pulse Resp BP Pulse Ox 98.2 F 97 15 119/79 99 02/24/18 13:43 02/24/18 13:43 02/24/18 13:43 02/24/18 13:43 02/24/18 13:43 Intake & Output 02/23/18 02/24/18 02/25/18 06:59 06:59 06:59 Weight 57.5 kg General appearance: PRESENT: no acute distress, well-developed, well-nourished Head exam: PRESENT: atraumatic, normocephalic Neck exam: ABSENT: carotid bruit, JVD, lymphadenopathy, thyromegaly Respiratory exam: PRESENT: clear to auscultation navneet. ABSENT: rales, rhonchi, wheezes Cardiovascular exam: PRESENT: RRR. ABSENT: diastolic murmur, rubs, systolic murmur GI/Abdominal exam: PRESENT: normal bowel sounds, soft. ABSENT: distended, guarding, mass, organolmegaly, rebound, tenderness Extremities exam: PRESENT: other - Left arm tender erythematous and fluctuating abscess Neurological exam: PRESENT: alert, awake, oriented to time, oriented to situation Results Laboratory Results: 02/24/18 14:50 02/24/18 14:50 02/24/18 02/24/18 14:50 14:50 WBC 18.7 H RBC 4.91 Hgb 13.8 Hct 40.7 MCV 83 MCH 28.2 MCHC 34.0 RDW 17.2 H Plt Count 229 Seg Neutrophils % Not Reportable Lymphocytes % Not Reportable Monocytes % Not Reportable Eosinophils % Not Reportable Basophils % Not Reportable Absolute Neutrophils Not Reportable Absolute Lymphocytes Not Reportable Absolute Monocytes Not Reportable Absolute Eosinophils Not Reportable Absolute Basophils Not Reportable Sodium 141.4 Potassium 3.2 L Chloride 97 L Carbon Dioxide 31 H Anion Gap 13 BUN 13 Creatinine 1.18 Est GFR ( Amer) > 60 Est GFR (Non-Af Amer) 52 L Glucose 116 H Calcium 9.3 Total Bilirubin 0.9 AST 48 H ALT 33 Alkaline Phosphatase 178 H Total Protein 8.0 Albumin 4.2 Impressions: Humerus X-Ray 02/24/18 14:33 IMPRESSION: NEGATIVE STUDY OF THE LEFT HUMERUS. NO RADIOGRAPHIC EVIDENCE OF ACUTE INJURY. Assessment & Plan - Diagnosis (1) Cellulitis and abscess of left arm Is this a current diagnosis for this admission?: Yes Plan: Abscess culture. IV cefepime and vancomycin. Surgery consulted for incision and drainage. (2) IV drug abuse Is this a current diagnosis for this admission?: Yes Plan: Patient claims she is sober for the last 4 days. Since patient might withdrawal I put her on clonidine, Percocet, did CPAP and Ativan
[2018-02-24] MEDS ORDERED: CLONIDINE HCL 0.1 MG TABLET PO ONE (19:00)
[2018-02-24] MEDS ORDERED: DIAZEPAM 5 MG TABLET PO ONE (19:00)
[2018-02-24] MEDS ORDERED: ENOXAPARIN SODIUM INJ 40 MG/0.4 ML DISP.SYRIN SUBCUT ONE (19:30)
[2018-02-24] MEDS ORDERED: ACETAMINOPHEN 1,000 MG/100 ML RTUPB IV ONE (20:17)
[2018-02-24] MEDS ORDERED: KETOROLAC TROMETHAMINE INJ/PF 30 MG/1 ML SDV ONE (20:17)
[2018-02-24] MEDS: LORAZEPAM INJ 2 MG/1 ML VIAL ONE ×2 (20:20→20:30)
[2018-02-24] MEDS ORDERED: NORMAL SALINE 1000 ML 1,000 ML IV PRN ×2 (21:25→22:59)
[2018-02-24] MEDS ORDERED: LORAZEPAM INJ 2 MG/1 ML VIAL IV ONE ×2 (21:30→23:00)
--- NOTE | 2018-02-24 22:40 | OPERATIVE REPORT E ---
Operative Report NAME: CAMERON SCHULTE : 1985 AGE: 32Y DATE OF SURGERY: 02/24/2018 ROOM: 208 PREOPERATIVE DIAGNOSIS: Multiple abscesses, left cubital area, left wrist and right foot dorsum. POSTOPERATIVE DIAGNOSIS: Multiple abscesses, left cubital area, left writs and right foot dorsum OPERATION: Multiple incision and drainage of 4 abscesses, 1 decubital area 4 x 4 cm and medial cubital area 1.5 x 1.5 c, 3 dorsum left wrist 3 x 3 cm and dorsum right foot 4 x 4 cm. INDICATION: This is a 32-year-old female who injected heroin on her left cubital area about 2 weeks. This started to swell and became more painful in the past week. She also noted swelling along the dorsum left wrist and on the right foot dorsum which she claimed she did not inject these areas. Injections just right of the cubital area. ANESTHESIA: General. SURGEON: BLANCHE PEREZ M.D. PROCEDURE: After adequate general anesthesia, patient was placed in the supine position and the left arm extended. Left arm and wrist were then prepped and draped in the usual sterile fashion. The right foot dorsum was prepped also at the same time. They were then draped in the usual sterile fashion. Incision was made over the left lateral cubital area where there was fluctuation noted and a gush of pus came out. Cultures were then obtained. With the use of a hemostat the incision was extended laterally and medially to a distance of about 4.5 cm. Hemostasis was then controlled with cautery. Next, another incision made on the medial aspect of the left cubital area and this time a small amount of pus was removed with the use of hemostat. The left wrist dorsum abscess was then incised and a lot of pus extruded out. The cavity size roughly measured about 3 cm x 3 cm. Again, hemostasis obtained and cautery primarily along the skin and subcutaneous areas. All of these abscesses went through to the area of the fascia but does not appear to be going beyond the fascial layer. The fourth abscess was the dorsum of the right foot and this time an incision made and also gush of pus noted. Cultures were obtained on the dorsum right foot and the left cubital area. The cavity size on the right foot roughly measured 4 x 4 cm. All these areas were then pulsed lavage and then packed with quarter-inch Xeroform gauze. Sterile dressings with 4 x 4 and EMMANUEL bandages were put over the quarter-inch Xeroform packing in these four areas. Patient tolerated the procedure well. Needle, instrument and sponge counts all correct. Patient brought to the recovery room in satisfactory condition. ESTIMATED BLOOD LOSS: About 30 mL. DICTATING PHYSICIAN: BLANCHE PEREZ M.D. [id number] PHY#: [id number] 2013 ID: [id number] JOB#: [id number] ACCT: [id number] cc:BLANCHE PEREZ M.D. >
[2018-02-24] MEDS: CEFEPIME 2 GM/D5W RTU 2 GM/50 ML RTUPB IV SCH (22:48)
[2018-02-24] MEDS ORDERED: LORAZEPAM INJ 2 MG/1 ML VIAL IV PRN (22:55)
[2018-02-24] MEDS ORDERED: CLINDAMYCIN 600 MG/D5W RTU 600 MG/50 ML RTUPB IV SCH (23:00)
[2018-02-24] MEDS: OXYCODONE-ACETAMINOPHEN 5-325 MG TABLET PO PRN (23:29)
[2018-02-25] MEDS: DIAZEPAM 5 MG TABLET PO SCH ×5 (00:41→23:35)
[2018-02-25] MEDS: KETOROLAC TROMETHAMINE INJ/PF 30 MG/1 ML SDV IV SCH ×3 (03:01→17:49)
[2018-02-25] MEDS: OXYCODONE-ACETAMINOPHEN 5-325 MG TABLET PO PRN ×3 (04:18→18:42)
[2018-02-25] MEDS ORDERED: VANCOMYCIN HCL 750 MG in DEXTROSE 5%-WATER 250 ML IV SCH (05:00)
[2018-02-25] MEDS: ACETAMINOPHEN 1,000 MG/100 ML RTUPB IV SCH ×2 (05:14→13:22)
[2018-02-25] MEDS: LANSOPRAZOLE 30 MG TAB.RAP.DR PO SCH (05:15)
[2018-02-25] MEDS: CLINDAMYCIN 600 MG/D5W RTU 600 MG/50 ML RTUPB IV SCH ×3 (06:29→21:09)
[2018-02-25 06:35] LABS: URINE AMPHETAMINES SCREEN NEGATIVE; URINE BARBITURATES SCREEN NEGATIVE; URINE COCAINE SCREEN NEGATIVE; URINE PHENCYCLIDINE SCREEN NEGATIVE
[2018-02-25 06:40] LABS: URINE BENZODIAZEPINES SCREEN UNCONFIRMED POSITIVE; URINE MARIJUANA (THC) SCREEN UNCONFIRMED POSITIVE; URINE METHADONE SCREEN UNCONFIRMED POSITIVE
[2018-02-25 07:23] LABS: ABSOLUTE EOSINOPHILS # (AUTO) 0.1 10^3/uL (0.0-0.6); ABSOLUTE LYMPHOCYTES (AUTO) 1.3 10^3/uL (0.5-4.7); ABSOLUTE MONOCYTES (AUTO) 0.8 10^3/uL (0.1-1.4); ABSOLUTE NEUT (AUTO) 13.3 10^3/uL (1.7-8.2); BASOPHILS % (AUTO) 0.3 % (0-2); EOSINOPHILS % (AUTO) 0.7 % (0-6); HEMATOCRIT 29.2 % (36.0-47.0); LYMPHOCYTES % (AUTO) 8.6 % (13-45); MEAN CORPUSCULAR HEMOGLOBIN 27.9 pg (27.0-33.4); MEAN CORPUSCULAR VOLUME 82 fl (80-97); MONOCYTES % (AUTO) 5.1 % (3-13); PLATELET COUNT 172 10^3/uL (150-450); RED BLOOD COUNT 3.57 10^6/uL (3.72-5.28); RED CELL DISTRIBUTION WIDTH 17.1 % (11.5-14.0); SEGMENTED NEUTROPHILS % (AUTO) 85.3 % (42-78); TOTAL CELLS COUNTED % (AUTO) 100 %; WHITE BLOOD COUNT 15.6 10^3/uL (4.0-10.5)
[2018-02-25 07:26] LABS: HEMOGLOBIN 9.9 g/dL (12.0-15.5)
[2018-02-25 07:31] LABS: ANION GAP 9 (5-19); BLOOD UREA NITROGEN 9 mg/dL (7-20); CALCIUM 8.2 mg/dL (8.4-10.2); CARBON DIOXIDE 30 mmol/L (22-30); CHLORIDE 99 mmol/L (98-107); GLUCOSE 100 mg/dL (75-110); SODIUM 138.3 mmol/L (137-145)
[2018-02-25 07:38] LABS: POTASSIUM 2.8 mmol/L (3.6-5.0)
[2018-02-25] MEDS: CEFEPIME 2 GM/D5W RTU 2 GM/50 ML RTUPB IV SCH (09:18)
[2018-02-25] MEDS: LORAZEPAM INJ 2 MG/1 ML VIAL IV PRN ×3 (09:30→21:09)
[2018-02-25] MEDS: ENOXAPARIN SODIUM INJ 40 MG/0.4 ML DISP.SYRIN SUBCUT SCH (09:30)
--- NOTE | 2018-02-25 12:21 | PDOC PROGRESS REPORT ---
Subjective Progress Note for:: 02/25/18 Subjective:: She is 32 years old female patient admitted for left upper arm cellulitis and abscess. Incision and drainage was done by Dr. Gaytan. This morning I seen patient resting in bed comfortably she is not in pain or any form of distress. I discontinue her cefepime and vancomycin and continue with clindamycin which was ordered by Dr. Gaytan. Her labs are looks better evidenced by her WBCs trended down from 18.7-15.6 and she has hypokalemia with potassium of 2.8 which is repleted. Reason For Visit: LEFT ARM CELLULITIS AND ABSCESS, IV DRUG ABUSER Physical Exam Vital Signs: Temp Pulse Resp BP Pulse Ox 98.1 F 85 15 98/64 L 94 02/25/18 07:51 02/25/18 07:51 02/25/18 07:51 02/25/18 07:51 02/25/18 07:51 Intake & Output 02/24/18 02/25/18 02/26/18 06:59 06:59 06:59 Intake Total 2750 Output Total 50 Balance 2700 Weight 58.8 kg Results Laboratory Results: 02/25/18 06:50 02/25/18 06:50 02/25/18 02/25/18 06:50 06:50 WBC 15.6 H RBC 3.57 L Hgb 9.9 L D Hct 29.2 L MCV 82 MCH 27.9 MCHC 34.0 RDW 17.1 H Plt Count 172 Seg Neutrophils % 85.3 H Lymphocytes % 8.6 L Monocytes % 5.1 Eosinophils % 0.7 Basophils % 0.3 Absolute Neutrophils 13.3 H Absolute Lymphocytes 1.3 Absolute Monocytes 0.8 Absolute Eosinophils 0.1 Absolute Basophils 0.0 Sodium 138.3 Potassium 2.8 L* Chloride 99 Carbon Dioxide 30 Anion Gap 9 BUN 9 Creatinine 0.63 Est GFR ( Amer) > 60 Est GFR (Non-Af Amer) > 60 Glucose 100 Calcium 8.2 L Impressions: Humerus X-Ray 02/24/18 14:33 IMPRESSION: NEGATIVE STUDY OF THE LEFT HUMERUS. NO RADIOGRAPHIC EVIDENCE OF ACUTE INJURY. Assessment & Plan - Diagnosis (1) Cellulitis and abscess of left arm Is this a current diagnosis for this admission?: Yes Plan: The cellulitis and abscess of and the dorsum of the right foot the left arm particularly the left cubital fossa. She had incision and drainage yesterday. Continue clindamycin. (2) IV drug abuse Is this a current diagnosis for this admission?: Yes Plan: Drug urine screen is positive for marijuana, methadone, benzodiazepine, opiates. Patient counseled and encouraged to remain sober and clean. - Time Time Spent with patient: 25-34 minutes
[2018-02-25] MEDS ORDERED: POTASSIUM CHLORIDE 20 MEQ/50 ML RTU IV SCH (15:30)
[2018-02-25] MEDS ORDERED: POTASSIUM CHLORIDE 10 MEQ CAPSULE.ER PO PRN ×2 (16:00→18:00)
[2018-02-25] MEDS: POTASSIUM CHLORIDE 10 MEQ CAPSULE.ER PO SCH ×2 (17:48→18:54)
--- NOTE | 2018-02-25 22:14 | PDOC PROGRESS REPORT ---
Subjective Progress Note for:: 02/25/18 Subjective:: C/O a lot of pains left arm operative sites asking for strong pain meds. She claims she is a recovering IV drug abuser and would require stronger pain maedications. Told her the pressure from the abscesses was drained yesterday and she should really feel better now. Reason For Visit: LEFT ARM CELLULITIS AND ABSCESS, IV DRUG ABUSER Physical Exam Vital Signs: Temp Pulse Resp BP Pulse Ox 98.8 F 93 18 100/68 100 02/25/18 15:23 02/25/18 15:23 02/25/18 15:23 02/25/18 15:23 02/25/18 15:23 Intake & Output 02/24/18 02/25/18 02/26/18 06:59 06:59 06:59 Intake Total 2750 Output Total 50 Balance 2700 Weight 58.8 kg Exam: left arm able to straighten better but not completely because of pains. Swelling appears to be improving. Results Laboratory Results: 02/25/18 06:50 02/25/18 06:50 02/25/18 02/25/18 06:50 06:50 WBC 15.6 H RBC 3.57 L Hgb 9.9 L D Hct 29.2 L MCV 82 MCH 27.9 MCHC 34.0 RDW 17.1 H Plt Count 172 Seg Neutrophils % 85.3 H Lymphocytes % 8.6 L Monocytes % 5.1 Eosinophils % 0.7 Basophils % 0.3 Absolute Neutrophils 13.3 H Absolute Lymphocytes 1.3 Absolute Monocytes 0.8 Absolute Eosinophils 0.1 Absolute Basophils 0.0 Sodium 138.3 Potassium 2.8 L* Chloride 99 Carbon Dioxide 30 Anion Gap 9 BUN 9 Creatinine 0.63 Est GFR ( Amer) > 60 Est GFR (Non-Af Amer) > 60 Glucose 100 Calcium 8.2 L Impressions: Humerus X-Ray 02/24/18 14:33 IMPRESSION: NEGATIVE STUDY OF THE LEFT HUMERUS. NO RADIOGRAPHIC EVIDENCE OF ACUTE INJURY. Assessment & Plan - Diagnosis (1) Abscess left cubital area Is this a current diagnosis for this admission?: Yes (2) abscess dorsum right foot Is this a current diagnosis for this admission?: Yes - Time Time Spent with patient: 15-24 minutes - Plan Summary Plan Summary: K is 2.8 and WBC 15.6. Ordered K replacement. Will recheck WBC and BMP in am Will remove packing tomorrow
[2018-02-26] MEDS: LORAZEPAM INJ 2 MG/1 ML VIAL IV PRN ×7 (00:07→16:45)
[2018-02-26] MEDS: OXYCODONE-ACETAMINOPHEN 5-325 MG TABLET PO PRN ×3 (00:51→09:23)
[2018-02-26] MEDS: ACETAMINOPHEN 1,000 MG/100 ML RTUPB IV SCH ×3 (01:31→15:14)
[2018-02-26] MEDS: KETOROLAC TROMETHAMINE INJ/PF 30 MG/1 ML SDV IV SCH ×3 (02:50→17:12)
[2018-02-26] MEDS: DIAZEPAM 5 MG TABLET PO SCH ×3 (05:35→17:12)
[2018-02-26] MEDS: LANSOPRAZOLE 30 MG TAB.RAP.DR PO SCH (05:35)
[2018-02-26] MEDS: CLINDAMYCIN 600 MG/D5W RTU 600 MG/50 ML RTUPB IV SCH ×2 (05:35→14:08)
[2018-02-26 06:35] LABS: ABSOLUTE BASOPHILS # (AUTO) 0.1 10^3/uL (0.0-0.2); ABSOLUTE EOSINOPHILS # (AUTO) 0.1 10^3/uL (0.0-0.6); ABSOLUTE LYMPHOCYTES (AUTO) 2.2 10^3/uL (0.5-4.7); ABSOLUTE MONOCYTES (AUTO) 0.5 10^3/uL (0.1-1.4); ABSOLUTE NEUT (AUTO) 6.9 10^3/uL (1.7-8.2); BASOPHILS % (AUTO) 0.7 % (0-2); EOSINOPHILS % (AUTO) 1.2 % (0-6); HEMATOCRIT 31.6 % (36.0-47.0); HEMOGLOBIN 10.8 g/dL (12.0-15.5); LYMPHOCYTES % (AUTO) 22.1 % (13-45); MEAN CORPUSCULAR HEMOGLOBIN 28.1 pg (27.0-33.4); MEAN CORPUSCULAR VOLUME 82 fl (80-97); MONOCYTES % (AUTO) 5.6 % (3-13); PLATELET COUNT 180 10^3/uL (150-450); RED BLOOD COUNT 3.84 10^6/uL (3.72-5.28); RED CELL DISTRIBUTION WIDTH 17.1 % (11.5-14.0); SEGMENTED NEUTROPHILS % (AUTO) 70.4 % (42-78); TOTAL CELLS COUNTED % (AUTO) 100 %; WHITE BLOOD COUNT 9.8 10^3/uL (4.0-10.5)
[2018-02-26 06:40] LABS: BLOOD UREA NITROGEN 5 mg/dL (7-20); CALCIUM 8.6 mg/dL (8.4-10.2); GLUCOSE 86 mg/dL (75-110)
[2018-02-26 06:41] LABS: ANION GAP 7 (5-19); CARBON DIOXIDE 29 mmol/L (22-30); CHLORIDE 109 mmol/L (98-107); POTASSIUM 3.5 mmol/L (3.6-5.0); SODIUM 145.3 mmol/L (137-145)
[2018-02-26 08:43] LABS: HEPATITIS A AB IGM Negative (Negative); HEPATITIS B CORE AB IGM Negative (Negative); HEPATITS B SURFACE ANTIGEN Negative (Negative)
[2018-02-26] MEDS: ENOXAPARIN SODIUM INJ 40 MG/0.4 ML DISP.SYRIN SUBCUT SCH (09:24)
[2018-02-26 10:15] LABS: HEPATITIS C VIRUS ANTIBODY >11.0 s/co ratio (0.0-0.9)
[2018-02-26 12:41] VITALS: BP 126/72
--- NOTE | 2018-02-26 12:48 | PDOC PROGRESS REPORT ---
Subjective Progress Note for:: 02/26/18 Subjective:: She is 32 years old female patient admitted for left upper arm cellulitis and abscess. Incision and drainage was done by Dr. Gaytan. This morning I seen patient resting in bed comfortably she complains of pain of the involved arm and intense craving for heroin. Patient has been on clindamycin. Patient started on methadone 10 mg every 8 hours. Her potassium is corrected and her serology for hepatitis positive for hepatitis C. Reason For Visit: LEFT ARM CELLULITIS AND ABSCESS, IV DRUG ABUSER Physical Exam Vital Signs: Temp Pulse Resp BP Pulse Ox 98.2 F 103 H 18 126/72 H 100 02/26/18 12:00 02/26/18 12:00 02/26/18 12:00 02/26/18 12:00 02/26/18 12:00 Intake & Output 02/25/18 02/26/18 02/27/18 06:59 06:59 06:59 Intake Total 2750 594 Output Total 50 Balance 2700 594 Weight 58.8 kg 62.4 kg General appearance: PRESENT: no acute distress, well-developed, well-nourished Head exam: PRESENT: atraumatic, normocephalic Eye exam: PRESENT: conjunctiva pink Mouth exam: PRESENT: moist Neck exam: ABSENT: carotid bruit, JVD, lymphadenopathy, thyromegaly Respiratory exam: PRESENT: clear to auscultation navneet. ABSENT: rales, rhonchi, wheezes Cardiovascular exam: PRESENT: RRR. ABSENT: diastolic murmur, rubs, systolic murmur GI/Abdominal exam: PRESENT: normal bowel sounds, soft. ABSENT: distended, guarding, mass, organolmegaly, rebound, tenderness Extremities exam: PRESENT: other - Her left arm are wrapped. No oozing or soaking. Results Laboratory Results: 02/26/18 05:57 02/26/18 05:57 02/26/18 02/26/18 05:57 05:57 WBC 9.8 RBC 3.84 Hgb 10.8 L Hct 31.6 L MCV 82 MCH 28.1 MCHC 34.0 RDW 17.1 H Plt Count 180 Seg Neutrophils % 70.4 Lymphocytes % 22.1 Monocytes % 5.6 Eosinophils % 1.2 Basophils % 0.7 Absolute Neutrophils 6.9 Absolute Lymphocytes 2.2 Absolute Monocytes 0.5 Absolute Eosinophils 0.1 Absolute Basophils 0.1 Sodium 145.3 H Potassium 3.5 L Chloride 109 H Carbon Dioxide 29 Anion Gap 7 BUN 5 L Creatinine 0.54 Est GFR ( Amer) > 60 Est GFR (Non-Af Amer) > 60 Glucose 86 Calcium 8.6 Impressions: Humerus X-Ray 02/24/18 14:33 IMPRESSION: NEGATIVE STUDY OF THE LEFT HUMERUS. NO RADIOGRAPHIC EVIDENCE OF ACUTE INJURY. Assessment & Plan - Diagnosis (1) Cellulitis and abscess of left arm Is this a current diagnosis for this admission?: Yes Plan: Continue clindamycin and wound care. (2) IV drug abuse Is this a current diagnosis for this admission?: Yes Plan: Drug urine screen is positive for marijuana, methadone, benzodiazepine, opiates. Patient counseled and encouraged to remain sober and clean. Patient has been started on methadone. (3) Hypokalemia Is this a current diagnosis for this admission?: Yes Plan: Corrected (4) Hepatitis C Is this a current diagnosis for this admission?: Yes Plan: Patient may be candidate for Harvoni. - Time Time Spent with patient: 25-34 minutes
[2018-02-26] MEDS ORDERED: METHADONE HCL 10 MG TABLET PO ONE (13:00)
[2018-02-26] MEDS ORDERED: NICOTINE 14 MG/24 HR PATCH.TD24 TD ONE (15:00)
[2018-02-26] MEDS ORDERED: POLYETHYLENE GLYCOL 3350 POWDER 17 GM/1 PACKET PO ONE (15:30)
--- NOTE | 2018-02-26 17:02 | PDOC PROGRESS REPORT ---
Subjective Reason For Visit: LEFT ARM CELLULITIS AND ABSCESS, IV DRUG ABUSER Physical Exam Vital Signs: Temp Pulse Resp BP Pulse Ox 98.2 F 103 H 18 126/72 H 100 02/26/18 12:00 02/26/18 12:00 02/26/18 12:00 02/26/18 12:00 02/26/18 12:00 Intake & Output 02/25/18 02/26/18 02/27/18 06:59 06:59 06:59 Intake Total 2750 594 Output Total 50 Balance 2700 594 Weight 58.8 kg 62.4 kg Results Laboratory Results: 02/26/18 05:57 02/26/18 05:57 02/26/18 02/26/18 05:57 05:57 WBC 9.8 RBC 3.84 Hgb 10.8 L Hct 31.6 L MCV 82 MCH 28.1 MCHC 34.0 RDW 17.1 H Plt Count 180 Seg Neutrophils % 70.4 Lymphocytes % 22.1 Monocytes % 5.6 Eosinophils % 1.2 Basophils % 0.7 Absolute Neutrophils 6.9 Absolute Lymphocytes 2.2 Absolute Monocytes 0.5 Absolute Eosinophils 0.1 Absolute Basophils 0.1 Sodium 145.3 H Potassium 3.5 L Chloride 109 H Carbon Dioxide 29 Anion Gap 7 BUN 5 L Creatinine 0.54 Est GFR ( Amer) > 60 Est GFR (Non-Af Amer) > 60 Glucose 86 Calcium 8.6 Impressions: Humerus X-Ray 02/24/18 14:33 IMPRESSION: NEGATIVE STUDY OF THE LEFT HUMERUS. NO RADIOGRAPHIC EVIDENCE OF ACUTE INJURY. Assessment & Plan - Plan Summary Plan Summary: This is a 32-year-old female status post incision and drainage of abscesses of the left upper extremity and lower extremity. Her packing was removed, and her abscess cavities are clean without signs of continued purulence. The patient does have significant induration in the area of the biceps, without obvious fluctuance or fluid collection. Patient is afebrile today and her white blood cell count is much improved. At my examination, the patient requested increasing amounts of narcotics. When her pain medication would not be increased, the patient became vulgar and belligerent. The patient requested I stop touching her, and even compared me to a "child molester". At this point, I left the room per her request. The patient's upper arm induration should be watched very closely. If it worsens, she may require ultrasound evaluation and/or CT scan.
[2018-02-26] MEDS ORDERED: METHADONE HCL 10 MG TABLET PO SCH (22:00)
[2018-02-27] MEDS ORDERED: LANSOPRAZOLE 30 MG TAB.RAP.DR PO SCH (06:00)
[2018-02-27] MEDS ORDERED: NICOTINE 14 MG/24 HR PATCH.TD24 TD SCH (10:00)
[2018-02-27] MEDS ORDERED: POLYETHYLENE GLYCOL 3350 POWDER 17 GM/1 PACKET PO SCH (10:00)
--- NOTE | 2018-03-19 18:19 | Progress Note ---
Provider Note Provider Note: CAMERON SCHULTE is a 32 year old female patient known IV drug abuser resents with chief complaint of chills, fever and left arm swelling. Patient admitted with impression of cellulitis and abscess involving the left upper arm and the dorsum of right foot. Surgical consultation was made to Dr. Gaytan who performed I&D and debridement on the same day. Patient has been started on broad-spectrum antibiotics and should been doing well. After 3 day stay in the hospital, while she was doing well, patient decided to leave AGAINST MEDICAL ADVICE. I myself and the nurse in charge of her had tried to convince her to stay behind in finish her antibiotics. I explained to her also the consequence of untreated infection might result in septic shock or . Patient was adamant and left AGAINST MEDICAL ADVICE.
== END 2018-02-26 18:50 | disposition left against medical advice (07) | DRG 603 ==
LOC: ER 13:31 → EH 18:49 → 2N 21:34 → 4S 02-25 11:16
PROVIDERS: ADMIT Internal Medicine; ATTEND Internal Medicine
PROC: 0H9MXZZ Drainage of Right Foot Skin, External Approach (ICD-10-PCS; 2018-02-24)
PROC: 0J9H3ZX Drainage of Left Lower Arm Subcutaneous Tissue and Fascia, Percutaneous Approach, Diagnostic (ICD-10-PCS; principal; 2018-02-24 19:30)
DX: L02.414 Cutaneous abscess of left upper limb (principal); L02.611 Cutaneous abscess of right foot; L03.114 Cellulitis of left upper limb; F32.9 Major depressive disorder, single episode, unspecified; F17.210 Nicotine dependence, cigarettes, uncomplicated; F11.10 Opioid abuse, uncomplicated; E87.6 Hypokalemia; F12.10 Cannabis abuse, uncomplicated; F13.10 Sedative, hypnotic or anxiolytic abuse, uncomplicated; B19.20 Unspecified viral hepatitis C without hepatic coma; Z82.49 Family history of ischemic heart disease and other diseases of the circulatory system
CPT/HCPCS: 00400; 36415; 80048; 80053; 80074; 80307; 85025; 86701; 87040; 87070; 87075; 87077; 87186; 87205; 96365; 96375; 99284; A6266; G0480; J0131; J0692; J1650; J1885; J2060; J2250; J2270; J2704; J3010; J3370; J3490; J7030; J7060; S0119

== ENCOUNTER 2018-02-27 11:18 | Emergency (ER) | payer SELFPAY ==
[2018-02-27 11:25] VITALS: BP 136/78
--- NOTE | 2018-02-27 11:56 | ER Document Report ---
ED Wound - General Chief Complaint: Wound Recheck Stated Complaint: WOUND RECHECK Mode of Arrival: Ambulatory Information source: Patient Notes: 32 yo female left AMA due to daughter about 12 hours ago. Had 3 abscess incised in the OR and needs wound checked. Not on any antibiotics. TRAVEL OUTSIDE OF THE [place] IN LAST 30 DAYS: No - Related Data Allergies/Adverse Reactions: peanut Allergy (Verified 02/27/18 11:20) Past Medical History - General Information source: Patient - Social History Smoking Status: Current Every Day Smoker Drug Abuse: Heroin - none for over a week Family History: Reviewed & Not Pertinent Renal/ Medical History: Denies: Hx Peritoneal Dialysis Psychiatric Medical History: Reports: Hx Depression - Past Surgical History: Reports: Hx Breast Surgery - reduction, Hx Section - x3 Review of Systems - Review of Systems Constitutional: No symptoms reported EENT: No symptoms reported Cardiovascular: No symptoms reported Respiratory: No symptoms reported Gastrointestinal: No symptoms reported Genitourinary: No symptoms reported Female Genitourinary: No symptoms reported Musculoskeletal: No symptoms reported Skin: See HPI Hematologic/Lymphatic: No symptoms reported Neurological/Psychological: No symptoms reported Physical Exam - Vital signs Vitals: Temp Pulse Resp BP Pulse Ox 98.9 F 102 H 16 136/78 H 100 02/27/18 11:23 02/27/18 11:23 02/27/18 11:23 02/27/18 11:23 02/27/18 11:23 Interpretation: Normal - General General appearance: Appears well, Alert - HEENT Head: Normocephalic, Atraumatic Eyes: Normal Pupils: PERRL - Respiratory Respiratory status: No respiratory distress Chest status: Nontender Breath sounds: Normal Chest palpation: Normal - Cardiovascular Rhythm: Regular Heart sounds: Normal auscultation Murmur: No - Abdominal Inspection: Normal Distension: No distension Bowel sounds: Normal Tenderness: Nontender Organomegaly: No organomegaly - Back Back: Normal, Nontender - Extremities General upper extremity: Normal inspection, Nontender, Normal color, Normal ROM , Normal temperature General lower extremity: Normal inspection, Nontender, Normal color, Normal ROM , Normal temperature, Normal weight bearing. No: Melissa's sign - Neurological Neuro grossly intact: Yes Cognition: Normal Orientation: AAOx4 Maurilio Coma Scale Eye Opening: Spontaneous Maurilio Coma Scale Verbal: Oriented Maurilio Coma Scale Motor: Obeys Commands Maurilio Coma Scale Total: 15 Speech: Normal Motor strength normal: LUE, RUE, LLE, RLE Sensory: Normal - Psychological Associated symptoms: Normal affect, Normal mood - Skin Skin Temperature: Warm Skin Moisture: Dry Skin Color: Normal Notes: dorsal right foot, dorsal left wrist and left antecubital incisions are clean, look healthy Course - Vital Signs Vital signs: Temp Pulse Resp BP Pulse Ox 98.9 F 102 H 16 136/78 H 100 02/27/18 11:23 02/27/18 11:23 02/27/18 11:23 02/27/18 11:23 02/27/18 11:23 Discharge - Discharge Clinical Impression: Wound check, abscess Condition: Good Disposition: HOME, SELF-CARE Instructions: Abscess ([facility]), Clindamycin ([facility]) Additional Instructions: Wash twice a day with antibacterial soap and lots of water to rinse with a dry dressing on top Return to the emergency room if the areas start draining or getting worse or you have any fever Prescriptions: Clindamycin HCl [Cleocin 150 mg Capsule] 300 mg PO QID #60 capsule Referrals: PERRI GOFF PA-C [Primary Care Provider] - 03/02/18
--- NOTE | 2018-02-27 12:04 | ER Document Report ---
ED Medical Screen (RME) - General Chief Complaint: Wound Recheck Stated Complaint: WOUND RECHECK Time Seen by Provider: 02/27/18 11:56 Notes: RAPID MEDICAL EVALUATION DISCLOSURE I have seen this patient as part of a Rapid Medical Evaluation and, if applicable, placed any initially appropriate orders. The patient will be seen and fully evaluated, including a full history and physical exam, by a provider ( in Main ED or Fast Track) when a room becomes available. 32-year-old female heroin abuser (IV drug use) was seen here recently for extensive left arm abscess after injecting heroin in that area with a dirty needle and was admitted and taken to the OR for I&D and washout, receiving daily IV antibiotics, then left AMA yesterday evening. She states the reason she left is because she thought her son's lips were turning blue and when she got home, she realized it was because he was sucking on a lollipop. She came back today because "I realized I needed to continue receiving IV antibiotics". It is uncertain whether or not she left AMA to go home and inject herself with more heroin. EXAM Multiple fresh incisions to the LUE and other areas of previous abscess Alert oriented and conversational TRAVEL OUTSIDE OF THE [place] IN LAST 30 DAYS: No - Related Data Allergies/Adverse Reactions: peanut Allergy (Verified 02/27/18 11:20) Past Medical History Renal/ Medical History: Denies: Hx Peritoneal Dialysis Psychiatric Medical History: Reports: Hx Depression - Past Surgical History: Reports: Hx Breast Surgery - reduction, Hx Section - x3 - Immunizations History of Influenza Vaccine for 06/2017 - 10/2017 Season: Yes Physical Exam - Vital signs Vitals: Temp Pulse Resp BP Pulse Ox 98.9 F 102 H 16 136/78 H 100 02/27/18 11:23 02/27/18 11:23 02/27/18 11:23 02/27/18 11:23 02/27/18 11:23 Course - Vital Signs Vital signs: Temp Pulse Resp BP Pulse Ox 98.9 F 102 H 16 136/78 H 100 02/27/18 11:23 02/27/18 11:23 02/27/18 11:23 02/27/18 11:23 02/27/18 11:23 Doctor's Discharge - Discharge Referrals: PERRI GOFF PA-C [Primary Care Provider] - Follow up as needed
[2018-02-27] MEDS ORDERED: CLINDAMYCIN HCL 150 MG CAPSULE PO ONE (12:21)
--- NOTE | 2018-02-27 19:10 | Progress Note ---
Provider Note Provider Note: This is 32 years old female patient admitted for cellulitis involving the left upper arm and right foot dorsum. Incision and drainage was done by Dr. Gaytan and patient has been on IV clindamycin. Patient is in no case of IV drug abuser and had a urinalysis positive for opiates benzodiazepine and marijuana. Patient has been doing well but she decided to check out by herself. I myself and the nurse in charge of her try to convince her to stay behind but she is adamant that she left AGAINST MEDICAL ADVICE.
== END 2018-02-27 12:53 | disposition home or self-care (01) ==
LOC: ER 11:18
DX: L02.414 Cutaneous abscess of left upper limb (principal)
CPT/HCPCS: 99282

== ENCOUNTER 2018-06-14 01:32 | Emergency (ER) | payer SELFPAY ==
--- NOTE | 2018-06-14 02:10 | ER Document Report ---
ED Substance Abuse / Acc. OD - General Chief Complaint: Accidental Overdose Stated Complaint: POSSIBLE OVERDOSE Time Seen by Provider: 06/14/18 02:06 Mode of Arrival: Medic Information source: Patient, Emergency Med Personnel Notes: Patient is a 33-year-old female who presents with chief complaint of overdose. Patient was brought in via EMS. EMS reports that patient was at a tattoo parlor with her boyfriend when he found her in the bathroom unresponsive. Initial O2 sats on EMS contact were in the low 80s. Patient was given 4 mg of intranasal Narcan followed by 0.5 mg of IV Narcan. Patient then became alert and oriented and admits to using powdered heroin that she snorted. Patient is alert, oriented on arrival and reports face and neck pain. Patient is unsure if she fell, she cannot recall all events. TRAVEL OUTSIDE OF THE [place] IN LAST 30 DAYS: No - Related Data Allergies/Adverse Reactions: peanut Allergy (Verified 02/27/18 11:20) Past Medical History - General Information source: Patient - Social History Smoking Status: Current Every Day Smoker Drug Abuse: Heroin, Marijuana, Prescription drugs Family History: Reviewed & Not Pertinent Patient has suicidal ideation: No Patient has homicidal ideation: No Renal/ Medical History: Denies: Hx Peritoneal Dialysis Psychiatric Medical History: Reports: Hx Depression - Past Surgical History: Reports: Hx Breast Surgery - reduction, Hx Section - x3 - Immunizations Immunizations up to date: No Review of Systems - Review of Systems Musculoskeletal: Neck pain -: Yes All other systems reviewed and negative Physical Exam - Vital signs Vitals: Pulse Ox 94 06/14/18 01:41 - Notes Notes: PHYSICAL EXAMINATION: GENERAL: Well-appearing, well-nourished and in no acute distress. HEAD: Atraumatic, normocephalic. EYES: Pupils equal round and reactive to light, extraocular movements intact, conjunctiva are normal. ENT: Nares patent, oropharynx clear without exudates. Moist mucous membranes. NECK: Normal range of motion, supple without lymphadenopathy LUNGS: Breath sounds clear to auscultation bilaterally and equal. No wheezes rales or rhonchi. HEART: Regular rate and rhythm without murmurs ABDOMEN: Soft, nontender, nondistended abdomen. No guarding, no rebound. No masses appreciated. Female : deferred Musculoskeletal: Normal range of motion, no pitting or edema. No cyanosis. No areas of ecchymosis noted, no visible injuries. NEUROLOGICAL: Cranial nerves grossly intact. Normal speech, normal gait. Normal sensory, motor exams PSYCH: Normal mood, normal affect. SKIN: Warm, Dry, normal turgor, no rashes or lesions noted. Course - Re-evaluation Re-evalutation: Patient is awake and alert on arrival. Vital signs are within normal limits. Patient denies any intention of self-harm. Patient reports she "snorted heroin or what I thought was some type of opiate". Will monitor patient for 2 hours and then plan to discharge home so long as she maintains her awakeness. Patient remains alert, oriented and sitting up on the side of the bed after multiple re-evaluations. Patient will be discharged home in stable condition at this time. - Vital Signs Vital signs: Temp Pulse Resp BP Pulse Ox 97.8 F 12 122/88 H 95 06/14/18 03:32 06/14/18 03:01 06/14/18 03:00 06/14/18 03:01 Discharge - Discharge Clinical Impression: Overdose Qualifiers: Encounter type: initial encounter Injury intent: accidental or unintentional Qualified Code(s): T50.901A - Poisoning by unspecified drugs, medicaments and biological substances, accidental (unintentional), initial encounter Condition: Stable Disposition: HOME, SELF-CARE Additional Instructions: You were seen today for heroin overdose. Please never use opiates of any kind. Over 130 people every day in the [place] from opiate overdoses. Do not become a statistic. You should urgently seek rehab or a similar resource. You can call 4-340-210-HELP to find local resources. Return if you have any symptoms that are concerning to you including difficulty breathing, fever, persistent vomiting, or any other symptoms that are concerning to you. Referrals: PERRI GOFF PA-C [Primary Care Provider] - Follow up as needed
[2018-06-14 03:41] VITALS: BP 122/88
== END 2018-06-14 03:43 | disposition home or self-care (01) ==
LOC: ER 01:32
DX: T40.1X1A Poisoning by heroin, accidental (unintentional), initial encounter (principal); F17.200 Nicotine dependence, unspecified, uncomplicated
CPT/HCPCS: 99284

== ENCOUNTER 2019-03-11 19:50 | Emergency (ER) | payer SELFPAY ==
[2019-03-11] MEDS ORDERED: CLINDAMYCIN HCL 150 MG CAPSULE PO ONE (20:05)
[2019-03-11] MEDS ORDERED: NORMAL SALINE 1000 ML 1,000 ML IV ONE (20:05)
[2019-03-11] MEDS ORDERED: KETOROLAC TROMETHAMINE INJ/PF 30 MG/1 ML SDV IV ONE ×2 (20:05→22:58)
--- NOTE | 2019-03-11 20:06 | EKG REPORT ---
SEVERITY:- OTHERWISE NORMAL ECG - SINUS TACHYCARDIA : Confirmed by: Sanjana Jimenez MD 11-Mar-2019 20:06:10
--- NOTE | 2019-03-11 20:09 | ER Document Report ---
ED General - General Information source: Patient TRAVEL OUTSIDE OF THE [place] IN LAST 30 DAYS: No <JORGE FREEMAN - Last Filed: 03/11/19 21:30> <BERNARDINO JACKSON - Last Filed: 03/11/19 22:53> - General Chief Complaint: Overdose Stated Complaint: POSSIBLE SEIZURE Time Seen by Provider: 03/11/19 20:04 Primary Care Provider: PERRI GOFF PA-C [NO LOCAL MD] - Follow up as needed Notes: HPI: Patient is a 33-year-old female who presents today with EMS after the friends called EMS secondary to some decreased responsiveness. Patient states she has had about 3 to 4 days of some tooth pain. Patient states she has a history of bad dentition. She denies any facial swelling or difficulty breathing or swallowing. She denies any fevers or vomiting. Patient states that she "snorted" Percocet because she thought it would make the pain relief faster. 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 She states she had one alcoholic beverage today. Patient denies any and all other drug use or abuse. 2 mg of Narcan was provided by EMS with resolution of the altered mental status. Patient denies any pain at this time other than to her teeth. Patient denies any and all SI or HI. ROS: See HPI All other review of systems reviewed and otherwise negative Reviewed vital signs and nursing note as charted by RN. PHYSICAL EXAM: CONSTITUTIONAL: Alert and oriented and responds appropriately to questions. Wel l-appearing; well-nourished HEAD: Normocephalic; atraumatic EYES: PERRL; Conjunctivae clear, sclerae non-icteric; no nystagmus noted ENT: Normal nose; no rhinorrhea; patient has no facial swelling or erythema. Patient has some mild dental decay to the upper and lower posterior molars. No obvious intraoral abscess is present; moist mucous membranes; pharynx without lesions noted NECK: Supple without meningismus; non-tender; no cervical lymphadenopathy, no masses CARD: Tachycardic but regular; no murmurs; symmetric distal pulses RESP: Normal chest excursion without splinting or tachypnea; breath sounds clear and equal bilaterally; no wheezes, no rhonchi, no rales ABD/GI: Normal bowel sounds; non-distended; soft, non-tender; no palpable organomegaly or masses BACK: The back appears normal and is non-tender to palpation EXT: Normal ROM in all joints; non-tender to palpation; no edema SKIN: No AC lesions present. Patient has scattered lesions to the feet that she states are secondary to ant bites NEURO: CN 2-12 intact; 5/5 bilateral upper and lower extremity strength with se nsation intact to light touch PSYCH: The patient's mood and manner are appropriate. Grooming and personal hygiene are appropriate (JORGE FREEMAN) - Related Data Allergies/Adverse Reactions: peanut Allergy (Verified 02/27/18 11:20) Past Medical History - Social History Family History: Reviewed & Not Pertinent Renal/ Medical History: Denies: Hx Peritoneal Dialysis Psychiatric Medical History: Reports: Hx Depression - Past Surgical History: Reports: Hx Breast Surgery - reduction, Hx Section - x3 - Immunizations Immunizations up to date: No <JORGE FREEMAN - Last Filed: 03/11/19 21:30> - Social History Smoking Status: Unknown if Ever Smoked <BERNARDINO JACKSON - Last Filed: 03/11/19 22:53> Course - Laboratory Result Diagrams: 03/11/19 20:05 03/11/19 20:05 <JORGE FREEMAN - Last Filed: 03/11/19 21:30> - Laboratory Result Diagrams: 03/11/19 20:05 03/11/19 20:05 <BERNARDINO JACKSON - Last Filed: 03/11/19 22:53> - Re-evaluation Re-evalutation: 03/11/19 20:08 Given the history and physical examination we will provide some fluids, Toradol for pain, clindamycin secondary to the penicillin allergy, place the patient on the monitor, and observe the patient in the emergency department. Patient currently denies any pain other than the mouth. Patient has no signs of intraoral abscess or facial cellulitis. Full painless range of motion of the neck. 03/11/19 20:11 EKG shows a heart rate of 113, sinus tachycardia, normal axis, narrow QRS, no ST elevation or depression 03/11/19 21:27 Labs as recorded. Positive test. Patient still denies any pain. Denies any abdominal pain or vaginal bleeding. Patient is a . She is unsure when her last menstrual period was but believes it was around 5 weeks ago. (JORGE FREEMAN) 03/11/19 22:47 Laboratory 03/11/19 03/11/19 03/11/19 20:05 20:05 20:05 WBC 5.1 RBC 4.28 Hgb 12.8 Hct 36.8 MCV 86 MCH 30.0 MCHC 34.8 RDW 15.6 H Plt Count 138 L Seg Neutrophils % 78.0 Lymphocytes % 13.8 Monocytes % 6.1 Eosinophils % 1.7 Basophils % 0.4 Absolute Neutrophils 4.0 Absolute Lymphocytes 0.7 Absolute Monocytes 0.3 Absolute Eosinophils 0.1 Absolute Basophils 0.0 Sodium 137.2 Potassium 3.7 Chloride 103 Carbon Dioxide 25 Anion Gap 9 BUN 7 Creatinine 0.59 Est GFR ( Amer) > 60 Est GFR (Non-Af Amer) > 60 Glucose 109 Calcium 9.2 Total Bilirubin 0.5 Direct Bilirubin 0.3 Neonat Total Bilirubin Not Reportable Neonat Direct Bilirubin Not Reportable Neonat Indirect Bili Not Reportable AST 26 ALT 19 Alkaline Phosphatase 48 Total Protein 6.9 Albumin 4.1 Serum HCG, Qual POSITIVE H Urine Color Urine Appearance Urine pH Ur Specific [place] Urine Protein Urine Glucose (UA) Urine Ketones Urine Blood Urine Nitrite Urine Bilirubin Urine Urobilinogen Ur Leukocyte Esterase Urine WBC (Auto) Urine RBC (Auto) U Hyaline Cast (Auto) Squamous Epi Cells Auto Urine Mucus (Auto) Urine Ascorbic Acid Salicylates < 1.0 L Urine Opiates Screen Urine Methadone Screen Acetaminophen < 10 L Ur Barbiturates Screen Ur Phencyclidine Scrn Ur Amphetamines Screen U Benzodiazepines Scrn Urine Cocaine Screen U Marijuana (THC) Screen Serum Alcohol < 10 03/11/19 03/11/19 21:29 21:29 WBC RBC Hgb Hct MCV MCH MCHC RDW Plt Count Seg Neutrophils % Lymphocytes % Monocytes % Eosinophils % Basophils % Absolute Neutrophils Absolute Lymphocytes Absolute Monocytes Absolute Eosinophils Absolute Basophils Sodium Potassium Chloride Carbon Dioxide Anion Gap BUN Creatinine Est GFR ( Amer) Est GFR (Non-Af Amer) Glucose Calcium Total Bilirubin Direct Bilirubin Neonat Total Bilirubin Neonat Direct Bilirubin Neonat Indirect Bili AST ALT Alkaline Phosphatase Total Protein Albumin Serum HCG, Qual Urine Color YELLOW Urine Appearance SLIGHTLY-CLOUDY Urine pH 5.0 Ur Specific [place] 1.018 Urine Protein 100 H Urine Glucose (UA) 150 H Urine Ketones NEGATIVE Urine Blood NEGATIVE Urine Nitrite NEGATIVE Urine Bilirubin SMALL H Urine Urobilinogen 2.0 H Ur Leukocyte Esterase NEGATIVE Urine WBC (Auto) 2 Urine RBC (Auto) 1 U Hyaline Cast (Auto) 7 Squamous Epi Cells Auto 1 Urine Mucus (Auto) FEW Urine Ascorbic Acid NEGATIVE Salicylates Urine Opiates Screen NEGATIVE Urine Methadone Screen UNCONFIRMED POSITIVE Acetaminophen Ur Barbiturates Screen NEGATIVE Ur Phencyclidine Scrn NEGATIVE Ur Amphetamines Screen NEGATIVE U Benzodiazepines Scrn NEGATIVE Urine Cocaine Screen NEGATIVE U Marijuana (THC) Screen UNCONFIRMED POSITIVE Serum Alcohol 03/11/19 22:48 Patient has incidental with a 8-week intrauterine . Dental infection. Will start on some clindamycin. Follow-up with dentist has been arranged according to sign out. Will DC at this time in stable condition. (BERNARDINO JACKSON) - Laboratory Laboratory results interpreted by me: 03/11/19 03/11/19 03/11/19 20:05 20:05 20:05 RDW 15.6 H Plt Count 138 L Serum HCG, Qual POSITIVE H Urine Protein Urine Glucose (UA) Urine Bilirubin Urine Urobilinogen Salicylates < 1.0 L Acetaminophen < 10 L 03/11/19 21:29 RDW Plt Count Serum HCG, Qual Urine Protein 100 H Urine Glucose (UA) 150 H Urine Bilirubin SMALL H Urine Urobilinogen 2.0 H Salicylates Acetaminophen Discharge <JORGE FREEMAN - Last Filed: 03/11/19 21:30> <BERNARDINO JACKSON - Last Filed: 03/11/19 22:53> - Discharge Clinical Impression: Dental infection, as incidental finding Condition: Good Disposition: HOME, SELF-CARE Instructions: Dental Infection or Abscess ([facility]), Dentist, ([facility]), Clindamycin ([facility]) Additional Instructions: Please take the antibiotics as prescribed as it appears that you might have a dental infection. You will need [employer] follow-up. Please make an appointment to go see [employer] as soon as possible. Avoid narcotics or illicit substances as this can affect your child. Prescriptions: Clindamycin HCl 300 mg PO Q6H 7 Days #28 capsule Referrals: PERRI GOFF PA-C [NO LOCAL MD] - Follow up as needed [facility] [Provider Group] - Follow up as needed [facility] [Provider Group] - Follow up as needed YOUNGER EURE,ALETA E, DO [ACTIVE STAFF] - Follow up as needed
[2019-03-11 20:17] LABS: ABSOLUTE EOSINOPHILS # (AUTO) 0.1 10^3/uL (0.0-0.6); ABSOLUTE MONOCYTES (AUTO) 0.3 10^3/uL (0.1-1.4); RED CELL DISTRIBUTION WIDTH 15.6 % (11.5-14.0); TOTAL CELLS COUNTED % (AUTO) 100 %
[2019-03-11 20:23] LABS: ABSOLUTE LYMPHOCYTES (AUTO) 0.7 10^3/uL (0.5-4.7); BASOPHILS % (AUTO) 0.4 % (0-2); EOSINOPHILS % (AUTO) 1.7 % (0-6); HEMATOCRIT 36.8 % (36.0-47.0); HEMOGLOBIN 12.8 g/dL (12.0-15.5); LYMPHOCYTES % (AUTO) 13.8 % (13-45); MEAN CORPUSCULAR HGB CONC 34.8 g/dL (32.0-36.0); MEAN CORPUSCULAR VOLUME 86 fl (80-97); MONOCYTES % (AUTO) 6.1 % (3-13); PLATELET COUNT 138 10^3/uL (150-450); RED BLOOD COUNT 4.28 10^6/uL (3.72-5.28); WHITE BLOOD COUNT 5.1 10^3/uL (4.0-10.5)
[2019-03-11 20:40] LABS: ACETAMINOPHEN < 10 ug/mL (10-30); ALANINE AMINOTRANSFERASE 19 U/L (9-52); ALBUMIN 4.1 g/dL (3.5-5.0); ALCOHOL < 10 mg/dL (NONE DETECTED); ALKALINE PHOSPHATASE 48 U/L (38-126); ANION GAP 9 (5-19); ASPARTATE AMINO TRANSFERASE 26 U/L (14-36); BILIRUBIN,DIRECT 0.3 mg/dL (0.0-0.4); BILIRUBIN,TOTAL 0.5 mg/dL (0.2-1.3); BLOOD UREA NITROGEN 7 mg/dL (7-20); CALCIUM 9.2 mg/dL (8.4-10.2); CARBON DIOXIDE 25 mmol/L (22-30); CHLORIDE 103 mmol/L (98-107); GLUCOSE 109 mg/dL (75-110); POTASSIUM 3.7 mmol/L (3.6-5.0); SALICYLATE < 1.0 mg/dL (2.0-20.0); TOTAL PROTEIN 6.9 g/dL (6.3-8.2)
[2019-03-11 22:01] LABS: URINE AMPHETAMINES SCREEN NEGATIVE; URINE BARBITURATES SCREEN NEGATIVE; URINE BENZODIAZEPINES SCREEN NEGATIVE; URINE COCAINE SCREEN NEGATIVE; URINE MARIJUANA (THC) SCREEN UNCONFIRMED POSITIVE; URINE METHADONE SCREEN UNCONFIRMED POSITIVE; URINE PHENCYCLIDINE SCREEN NEGATIVE
[2019-03-11 22:06] LABS: APPEARANCE,URINE SLIGHTLY-CLOUDY; BILIRUBIN,URINE SMALL (NEGATIVE); COLOR,URINE YELLOW; GLUCOSE, URINE 150 mg/dL (NEGATIVE); KETONES,URINE NEGATIVE (NEGATIVE); LEUKOCYTE ESTERASE,URINE NEGATIVE (NEGATIVE); NITRITE,URINE NEGATIVE (NEGATIVE); PROTEIN,URINE 100 mg/dL (NEGATIVE); URINE SPECIFIC GRAVITY 1.018
--- NOTE | 2019-03-11 22:52 | RADIOLOGY REPORT (SQ) ---
EXAM DESCRIPTION: US TRANSVAGINAL COMPLETED DATE/TME: 03/11/2019 21:26 CLINICAL HISTORY: 33 years, Female, [birth year]; EXAM DESCRIPTION: CLINICAL HISTORY: [birth year]; COMPARISON: None. FINDINGS: [Transabdominal ] [transvaginal ] images of the pelvis were submitted. Uterus measures 95 80 x 77 mm, right ovary 25 x 15 x 23 mm, left ovary 28 x 18 x 16 mm. There is a single live IUP with estimated gestational age 8 weeks three days, ultrasound MAURA is 2-7-20. Cervix length 21 mm. heart rate 169 bpm. Left ovarian complex echogenic lesion measures 17 x 17 x 15 mm. This is nonspecific and attention is recommended at follow-up. There are two possible subchorionic bleeds measuring 23 x 8 x 18 mm and 15 x 6 x 21 mm. No other acute abnormality is seen. IMPRESSION: Single live IUP with two possible subchorionic hemorrhages. Follow-up is recommended. Nonspecific left ovarian echogenic lesion. Attention at follow-up is recommended.
[2019-03-11 23:02] VITALS: BP 118/73
== END 2019-03-11 23:16 | disposition home or self-care (01) ==
LOC: ER 19:50
DX: K04.7 Periapical abscess without sinus (principal); Z33.1 Pregnant state, incidental; Z3A.08 8 weeks gestation of pregnancy; Z91.010 Allergy to peanuts
CPT/HCPCS: 93005; 99285; 96361; 96374; 36415; 80307 ×4; 84702; 84703; 85025; 80053; 81001; 76817; 93010; J1885; J7030